=== PATIENT | male | born 1995 | race Caucasian/White ===

== ENCOUNTER 2017-11-21 21:17 | Emergency (ER) | payer BC ==
[2017-11-21] MEDS ORDERED: NS 0.9% 1000 ML* 1,000 ML IV ONE ×2 (21:43→22:06)
[2017-11-21] MEDS ORDERED: Albuterol/Ipratropium NEB.SOL* Albuterol 2.5 MG/Ipratropium 0.5 MG 3 ML INH ONE (22:06)
[2017-11-21 22:54] LABS: ABS Basophils 0 10^3/ul (0-0.2); ABS Eosinophils 0.1 10^3/ul (0-0.6); ABS Lymphocytes 1.8 10^3/ul (1.0-4.8); ABS Monocytes 0.5 10^3/ul (0-0.8); ABS Neutrophils 5.5 10^3/ul (1.5-7.7); ABS Nucleated RBC 0 10^3/ul; Eosinophil % 0.9 % (0-6); Hematocrit 41 % (42-52); Lymphocyte % 22.9 % (25-47); Mean Corpuscular HGB Conc 34 g/dl (31-36); Mean Corpuscular Hemoglobin 30 pg (27-31); Mean Corpuscular Volume 89 fL (80-94); Mean Platelet Volume 8.7 um3 (7.4-10.4); Nucleated Red Blood Cells % 0; Platelet Count 178 10^3/ul (150-450); Red Blood Count 4.61 10^6/ul (4.0-5.4); Red Cell Distribution Width 13 % (10.5-15); White Blood Count 7.9 10^3/ul (3.5-10.8)
[2017-11-21 23:10] LABS: EGFR Non-African American 79.5 (>60)
[2017-11-21] MEDS ORDERED: predniSONE TAB* 20 MG PO ONE (23:16)
--- NOTE | 2017-11-22 | ED ---
Wyatt Simon Jennifer, scribed for Zane Serrano MD on 11/21/17 at 2209 . Complex/Multi-Sys Presentation - HPI Summary HPI Summary: The patient is a 22 year old male who presents with SOB and weakness for the past several weeks. The patient reports he had a lung infection three weeks and received antibiotics. However, he has progressively worsened with wheezing and weakness now. He additionally complains of body aches, chills, tightness with breathing, productive cough, right neck and face swelling, and runny nose. Patient describes his cough is dark yellow with brown specks. He denies pain or swelling in the legs. - History Of Current Complaint Chief Complaint: EDShortnessOfBreath Time Seen by Provider: 11/21/17 21:41 Hx Obtained From: Patient Onset/Duration: Gradual Onset, Lasting Weeks - 3 weeks, Still Present, Worse Since - three weeks Timing: Constant Severity Currently: Mild Severity Initially: Mild Associated Signs And Symptoms: Positive: Other - wheezing, SOB, weakness, body aches, chills, productive cough, right neck and face swelling, runny nose. NEG: pain or swelling in the legs Related History: Recent Illness - Diagnosed with pneumonia three weeks ago - Allergies/Home Medications Allergies/Adverse Reactions: Allergies Allergy/AdvReac Type Severity Reaction Status Date / Time No Known Allergies Allergy Verified 10/25/14 09:59 PMH/Surg Hx/FS Hx/Imm Hx Endocrine/Hematology History: Denies: Hx Diabetes, Hx Thyroid Disease Cardiovascular History: Denies: Hx Hypertension Respiratory History: Denies: Hx Asthma, Hx Chronic Obstructive Pulmonary Disease (COPD) GI History: Denies: Hx Ulcer - Surgical History Surgery Procedure, Year, and Place: Tubes in ears as a child Infectious Disease History: No Infectious Disease History: Denies: Hx Clostridium Difficile, Hx Hepatitis, Hx Human Immunodeficiency Virus (HIV), Hx of Known/Suspected MRSA, Hx Shingles, Hx Tuberculosis, Hx Known/ Suspected VRE, Hx Known/Suspected VRSA, History Other Infectious Disease, Traveled Outside the [place] in Last 30 Days - Family History Known Family History: Negative: Hypertension, Diabetes - Social History Alcohol Use: None Hx Substance Use: No Substance Use Type: Reports: None Hx Tobacco Use: Yes Smoking Status (MU): Light Every Day Tobacco Smoker Type: Cigarettes Review of Systems Positive: Chills, Other - body aches Positive: Shortness Of Breath, Cough Positive: Other - right face and neck swelling Positive: Weakness All Other Systems Reviewed And Are Negative: Yes Physical Exam - Summary Physical Exam Summary: Appearance: Well appearing, no pain distress Skin: warm, dry, reflects adequate perfusion Head/face: normal Eyes: EOMI, HOA ENT: normal, no nasal discharge, clear throat, ears normal Neck: supple, non-tender Respiratory: Some rustling sounds in periphery, no wheezes, breath sounds present Cardiovascular: Tachycardic, regular rhythm, pulses symmetrical Abdomen: non-tender, soft Bowel Sounds: present Musculoskeletal: normal, strength/ROM intact Neuro: normal, sensory motor intact, A&Ox3 Triage Information Reviewed: Yes Vital Signs On Initial Exam: Initial Vitals Temp Pulse Resp BP Pulse Ox 97.8 F 119 16 164/101 99 11/21/17 21:30 11/21/17 21:30 11/21/17 21:30 11/21/17 21:30 11/21/17 21:30 Vital Signs Reviewed: Yes Diagnostics - Vital Signs Vital Signs Temp Pulse Resp BP Pulse Ox 11/21/17 21:30 97.8 F 119 16 164/101 99 - Laboratory Lab Results: Lab Results 11/21/17 11/21/17 11/21/17 Range/Units 22:46 22:46 22:46 WBC 7.9 (3.5-10.8) 10^3/ul RBC 4.61 (4.0-5.4) 10^6/ul Hgb 14.0 (14.0-18.0) g/dl Hct 41 L (42-52) % MCV 89 (80-94) fL MCH 30 (27-31) pg MCHC 34 (31-36) g/dl RDW 13 (10.5-15) % Plt Count 178 (150-450) 10^3/ul MPV 8.7 (7.4-10.4) um3 Neut % (Auto) 70.0 (38-83) % Lymph % (Auto) 22.9 L (25-47) % Latimer % (Auto) 5.7 (0-7) % Eos % (Auto) 0.9 (0-6) % Baso % (Auto) 0.5 (0-2) % Absolute Neuts (auto) 5.5 (1.5-7.7) 10^3/ul Absolute Lymphs (auto) 1.8 (1.0-4.8) 10^3/ul Absolute Monos (auto) 0.5 (0-0.8) 10^3/ul Absolute Eos (auto) 0.1 (0-0.6) 10^3/ul Absolute Basos (auto) 0 (0-0.2) 10^3/ul Absolute Nucleated RBC 0 10^3/ul Nucleated RBC % 0 D-Dimer, Quantitative (Less Than 230) ng/mL Sodium 137 L (139-145) mmol/L Potassium 3.9 (3.5-5.0) mmol/L Chloride 103 (101-111) mmol/L Carbon Dioxide 27 (22-32) mmol/L Anion Gap 7 (2-11) mmol/L BUN 16 (6-24) mg/dL Creatinine 1.16 (0.67-1.17) mg/dL Est GFR ( Amer) 102.2 (>60) Est GFR (Non-Af Amer) 79.5 (>60) BUN/Creatinine Ratio 13.8 (8-20) Glucose 114 H (70-100) mg/dL Lactic Acid 0.7 (0.5-2.0) mmol/L Calcium 9.6 (8.6-10.3) mg/dL 11/21/17 Range/Units 22:46 WBC (3.5-10.8) 10^3/ul RBC (4.0-5.4) 10^6/ul Hgb (14.0-18.0) g/dl Hct (42-52) % MCV (80-94) fL MCH (27-31) pg MCHC (31-36) g/dl RDW (10.5-15) % Plt Count (150-450) 10^3/ul MPV (7.4-10.4) um3 Neut % (Auto) (38-83) % Lymph % (Auto) (25-47) % Latimer % (Auto) (0-7) % Eos % (Auto) (0-6) % Baso % (Auto) (0-2) % Absolute Neuts (auto) (1.5-7.7) 10^3/ul Absolute Lymphs (auto) (1.0-4.8) 10^3/ul Absolute Monos (auto) (0-0.8) 10^3/ul Absolute Eos (auto) (0-0.6) 10^3/ul Absolute Basos (auto) (0-0.2) 10^3/ul Absolute Nucleated RBC 10^3/ul Nucleated RBC % D-Dimer, Quantitative < 200 (Less Than 230) ng/mL Sodium (139-145) mmol/L Potassium (3.5-5.0) mmol/L Chloride (101-111) mmol/L Carbon Dioxide (22-32) mmol/L Anion Gap (2-11) mmol/L BUN (6-24) mg/dL Creatinine (0.67-1.17) mg/dL Est GFR ( Amer) (>60) Est GFR (Non-Af Amer) (>60) BUN/Creatinine Ratio (8-20) Glucose (70-100) mg/dL Lactic Acid (0.5-2.0) mmol/L Calcium (8.6-10.3) mg/dL Result Diagrams: 11/21/17 22:46 11/21/17 22:46 Lab Statement: Any lab studies that have been ordered have been reviewed, and results considered in the medical decision making process. - Radiology CXR Xray Interpretation: No Acute Changes - Normal. Radiology Interpretation Completed By: ED Physician Re-Evaluation - Re-Evaluation First Eval Re-Evaluation Time: 23:14 Change: Improved Comment: The patient is doing much better after fluids and breathing treatment. Complex Multi-Symp Course/Dx Course Of Treatment: Patient with some coughing and sputum production along with intermittent wheezing. There is no definite wheezing heard on auscultation but some rustling breath sounds. Chest x-ray was negative. Laboratories were nonrevealing and the d-dimer was negative. He improved with breathing treatments and IV hydration. He was discharged in good condition on prednisone and albuterol. He will follow up with his primary care physician. - Diagnoses Differential Diagnoses/HQI/PQRI: Other - Pneumonia, pulmonary embolism, bronchitis Provider Diagnoses: Bronchitis, Dehydration Discharge - Sign-Out/Discharge Documenting (check all that apply): Discharge/Admit/Transfer - Discharge Plan Condition: Good Disposition: HOME Prescriptions: Albuterol HFA INHALER* [Ventolin HFA Inhaler*] 2 puff INH Q4H PRN #1 mdi PRN Reason: Shortness Of Breath predniSONE TAB* [Deltasone TAB*] 50 mg PO DAILY #4 tab Patient Education Materials: Dehydration (ED), Acute Bronchitis (ED) Referrals: Francisco Vázquez MD [Primary Care Provider] - Additional Instructions: Stay well-hydrated. Use inhaler as needed. Steroid might make he feels little anxious. Call your doctor first thing in the morning to follow-up. Return if worse, new symptoms or other concerns. - Billing Disposition and Condition Condition: STABLE Disposition: HOME The documentation as recorded by the Wyatt dillard Jennifer accurately reflects the service I personally performed and the decisions made by me, Zane Serrano MD.
[2017-11-22 00:18] VITALS: BP 121/65
--- NOTE | 2017-11-22 07:40 | RAD ---
HISTORY: Shortness of breath COMPARISONS: None VIEWS: 4: Frontal dual-energy and lateral views of the chest. FINDINGS: CARDIOMEDIASTINAL SILHOUETTE: The cardiomediastinal silhouette is normal. SHERLY: The sherly are normal. PLEURA: The costophrenic angles are sharp. No pleural abnormalities are noted. LUNG PARENCHYMA: The lungs are clear. ABDOMEN: The upper abdomen is clear. There is no subphrenic gas. BONES AND SOFT TISSUES: No bone or soft tissue abnormalities are noted. OTHER: None. IMPRESSION: NO ACTIVE CARDIOPULMONARY DISEASE.
== END 2017-11-22 00:19 | disposition home or self-care (01) ==
LOC: ED 21:17
DX: J40 Bronchitis, not specified as acute or chronic (principal); E86.0 Dehydration; R06.02 Shortness of breath; R53.1 Weakness; F17.210 Nicotine dependence, cigarettes, uncomplicated
CPT/HCPCS: 36415; 71046; 80048; 83605; 85025; 85379; 99284; A9270-GY; J7512

== ENCOUNTER 2017-11-24 15:40 | Emergency (ER) | payer BC ==
[2017-11-24] MEDS ORDERED: Albuterol/Ipratropium NEB.SOL* Albuterol 2.5 MG/Ipratropium 0.5 MG 3 ML INH ONE (17:03)
[2017-11-24 17:20] LABS: ABS Basophils 0 10^3/ul (0-0.2); ABS Eosinophils 0 10^3/ul (0-0.6); ABS Lymphocytes 0.5 10^3/ul (1.0-4.8); ABS Monocytes 0.1 10^3/ul (0-0.8); ABS Neutrophils 8.5 10^3/ul (1.5-7.7); ABS Nucleated RBC 0 10^3/ul; Eosinophil % 0.1 % (0-6); Hematocrit 43 % (42-52); Hemoglobin 14.4 g/dl (14.0-18.0); Lymphocyte % 5.6 % (25-47); Mean Corpuscular HGB Conc 34 g/dl (31-36); Mean Corpuscular Hemoglobin 31 pg (27-31); Mean Corpuscular Volume 90 fL (80-94); Mean Platelet Volume 8.6 um3 (7.4-10.4); Nucleated Red Blood Cells % 0; Platelet Count 174 10^3/ul (150-450); Red Blood Count 4.72 10^6/ul (4.0-5.4); Red Cell Distribution Width 13 % (10.5-15); White Blood Count 9.2 10^3/ul (3.5-10.8)
--- NOTE | 2017-11-24 17:34 | RAD ---
HISTORY: Cough, shortness of breath COMPARISONS: November 21, 2017 VIEWS: 4: Frontal dual-energy and lateral views of the chest. FINDINGS: CARDIOMEDIASTINAL SILHOUETTE: The cardiomediastinal silhouette is normal. SHERLY: The sherly are normal. PLEURA: The costophrenic angles are sharp. No pleural abnormalities are noted. LUNG PARENCHYMA: There is hyperinflation with flattening of the diaphragm and expansion of the retrosternal airspace. ABDOMEN: The upper abdomen is clear. There is no subphrenic gas. BONES AND SOFT TISSUES: No bone or soft tissue abnormalities are noted. OTHER: None. IMPRESSION: HYPERINFLATION WHICH CAN BE SEEN WITH REACTIVE AIRWAY DISEASE OR COPD. NO ACTIVE CARDIOPULMONARY DISEASE.
[2017-11-24 17:36] LABS: EGFR Non-African American 94.3 (>60)
[2017-11-24] MEDS ORDERED: Azithromycin TAB* 250 MG PO ONE (18:22)
[2017-11-24] MEDS ORDERED: predniSONE TAB* 20 MG PO ONE (18:22)
[2017-11-24 18:29] VITALS: BP 118/69
--- NOTE | 2017-11-24 18:46 | ED ---
Rodolfo Simon Stephanie, scribed for Darin Montoya on 11/24/17 at 1653 . Respiratory - HPI Summary HPI Summary: The pt is a 22 y/o M presenting to the ED with c/o cough that began on 11/21/17. Symptoms include wheezing and shallow breathing. The pt was seen in the ED for the same symptoms on Sunday and given prednisone and albuterol. He states his symptoms have gotten worse since his last ED visit. The pt states he took abx amoxicillin from his PCP: last dose on Nov 08 2017. - History of Current Complaint Chief Complaint: EDUpperRespComplaint Stated Complaint: SOB/FATIGUE Time Seen by Provider: 11/24/17 16:20 Hx Obtained From: Patient Onset/Duration: Gradual Onset, Lasting Days - 3, Still Present Timing: Constant Current Severity: Mild Pain Intensity: 0 Character: Wheezing Sputum Amount: Small Aggravating Factor(s): Nothing Alleviating Factor(s): Nothing Associated Signs and Symptoms: Wheezing - Allergy/Home Medications Allergies/Adverse Reactions: Allergies Allergy/AdvReac Type Severity Reaction Status Date / Time No Known Allergies Allergy Verified 11/24/17 15:45 PMH/Surg Hx/FS Hx/Imm Hx Endocrine/Hematology History: Denies: Hx Diabetes, Hx Thyroid Disease Cardiovascular History: Denies: Hx Hypertension Respiratory History: Reports: Other Respiratory Problems/Disorders - PNA Denies: Hx Asthma, Hx Chronic Obstructive Pulmonary Disease (COPD) GI History: Denies: Hx Ulcer Sensory History: Denies: Hx Legally Blind EENT History: Denies: Hx Deafness - Surgical History Surgery Procedure, Year, and Place: Tubes in ears as a child Infectious Disease History: No Infectious Disease History: Denies: Hx Clostridium Difficile, Hx Hepatitis, Hx Human Immunodeficiency Virus (HIV), Hx of Known/Suspected MRSA, Hx Shingles, Hx Tuberculosis, Hx Known/ Suspected VRE, Hx Known/Suspected VRSA, History Other Infectious Disease, Traveled Outside the [place] in Last 30 Days - Family History Known Family History: Negative: Hypertension, Diabetes - Social History Occupation: Student Lives: Dormitory/Roommates Alcohol Use: Occasionally Hx Substance Use: No Substance Use Type: Reports: None Hx Tobacco Use: Yes Smoking Status (MU): Former Smoker Type: Cigarettes Review of Systems Negative: Fever Positive: Cough, Other - wheezing, shallow breathing Negative: Slurred Speech All Other Systems Reviewed And Are Negative: Yes Physical Exam - Summary Physical Exam Summary: Appearance: Well appearing, no pain distress Skin: warm, dry, reflects adequate perfusion Head/face: normal Eyes: EOMI, HOA ENT: normal Neck: supple, non-tender Respiratory: bilateral wheezes, breath sounds present Cardiovascular: RRR, pulses symmetrical Abdomen: non-tender, soft Bowel: present Musculoskeletal: normal, strength/ROM intact Neuro: normal, sensory motor intact, A&Ox3 Triage Information Reviewed: Yes Vital Signs On Initial Exam: Initial Vitals Temp Pulse Resp BP Pulse Ox 98.2 F 96 18 132/79 99 11/24/17 15:45 11/24/17 15:45 11/24/17 15:45 11/24/17 15:45 11/24/17 15:45 Vital Signs Reviewed: Yes Diagnostics - Vital Signs Vital Signs Temp Pulse Resp BP Pulse Ox 11/24/17 16:25 18 11/24/17 16:21 93 120/74 98 11/24/17 15:45 98.2 F 96 18 132/79 99 - Laboratory Lab Results: Lab Results 11/24/17 11/24/17 11/24/17 Range/Units 17:10 17:10 17:10 WBC 9.2 (3.5-10.8) 10^3/ul RBC 4.72 (4.0-5.4) 10^6/ul Hgb 14.4 (14.0-18.0) g/dl Hct 43 (42-52) % MCV 90 (80-94) fL MCH 31 (27-31) pg MCHC 34 (31-36) g/dl RDW 13 (10.5-15) % Plt Count 174 (150-450) 10^3/ul MPV 8.6 (7.4-10.4) um3 Neut % (Auto) 93.1 H (38-83) % Lymph % (Auto) 5.6 L (25-47) % Rosebud % (Auto) 1.0 (0-7) % Eos % (Auto) 0.1 (0-6) % Baso % (Auto) 0.2 (0-2) % Absolute Neuts (auto) 8.5 H (1.5-7.7) 10^3/ul Absolute Lymphs (auto) 0.5 L (1.0-4.8) 10^3/ul Absolute Monos (auto) 0.1 (0-0.8) 10^3/ul Absolute Eos (auto) 0 (0-0.6) 10^3/ul Absolute Basos (auto) 0 (0-0.2) 10^3/ul Absolute Nucleated RBC 0 10^3/ul Nucleated RBC % 0 D-Dimer, Quantitative (Less Than 230) ng/mL Sodium 141 (139-145) mmol/L Potassium 4.7 (3.5-5.0) mmol/L Chloride 106 (101-111) mmol/L Carbon Dioxide 27 (22-32) mmol/L Anion Gap 8 (2-11) mmol/L BUN 10 (6-24) mg/dL Creatinine 1.00 (0.67-1.17) mg/dL Est GFR ( Amer) 121.3 (>60) Est GFR (Non-Af Amer) 94.3 (>60) BUN/Creatinine Ratio 10.0 (8-20) Glucose 112 H (70-100) mg/dL Lactic Acid 1.4 (0.5-2.0) mmol/L Calcium 9.8 (8.6-10.3) mg/dL Total Bilirubin 0.70 (0.2-1.0) mg/dL AST 16 (13-39) U/L ALT 15 (7-52) U/L Alkaline Phosphatase 43 (34-104) U/L Troponin I 0.00 (<0.04) ng/mL B-Natriuretic Peptide ( - 100) pg/mL Total Protein 7.2 (6.4-8.9) g/dL Albumin 5.0 (3.2-5.2) g/dL Globulin 2.2 (2-4) g/dL Albumin/Globulin Ratio 2.3 (1-3) 11/24/17 11/24/17 Range/Units 17:10 17:10 WBC (3.5-10.8) 10^3/ul RBC (4.0-5.4) 10^6/ul Hgb (14.0-18.0) g/dl Hct (42-52) % MCV (80-94) fL MCH (27-31) pg MCHC (31-36) g/dl RDW (10.5-15) % Plt Count (150-450) 10^3/ul MPV (7.4-10.4) um3 Neut % (Auto) (38-83) % Lymph % (Auto) (25-47) % Rosebud % (Auto) (0-7) % Eos % (Auto) (0-6) % Baso % (Auto) (0-2) % Absolute Neuts (auto) (1.5-7.7) 10^3/ul Absolute Lymphs (auto) (1.0-4.8) 10^3/ul Absolute Monos (auto) (0-0.8) 10^3/ul Absolute Eos (auto) (0-0.6) 10^3/ul Absolute Basos (auto) (0-0.2) 10^3/ul Absolute Nucleated RBC 10^3/ul Nucleated RBC % D-Dimer, Quantitative < 200 (Less Than 230) ng/mL Sodium (139-145) mmol/L Potassium (3.5-5.0) mmol/L Chloride (101-111) mmol/L Carbon Dioxide (22-32) mmol/L Anion Gap (2-11) mmol/L BUN (6-24) mg/dL Creatinine (0.67-1.17) mg/dL Est GFR ( Amer) (>60) Est GFR (Non-Af Amer) (>60) BUN/Creatinine Ratio (8-20) Glucose (70-100) mg/dL Lactic Acid (0.5-2.0) mmol/L Calcium (8.6-10.3) mg/dL Total Bilirubin (0.2-1.0) mg/dL AST (13-39) U/L ALT (7-52) U/L Alkaline Phosphatase (34-104) U/L Troponin I (<0.04) ng/mL B-Natriuretic Peptide 21 ( - 100) pg/mL Total Protein (6.4-8.9) g/dL Albumin (3.2-5.2) g/dL Globulin (2-4) g/dL Albumin/Globulin Ratio (1-3) Result Diagrams: 11/24/17 17:10 11/24/17 17:10 Lab Statement: Any lab studies that have been ordered have been reviewed, and results considered in the medical decision making process. - Radiology CXR Xray Interpretation: No Acute Changes Radiology Interpretation Completed By: Radiologist - HYPERINFLATION WHICH CAN BE SEEN WITH REACTIVE AIRWAY DISEASE OR COPD. NO ACTIVE CARDIOPULMONARY DISEASE. ED physician has reviewed this report. Re-Evaluation - Re-Evaluation First Eval Re-Evaluation Time: 18:19 Change: Improved - The pt is feeling better at this time after neb treatment. Disposition - Course Course Of Treatment: The pt is a 22 y/o M presenting to the ED with c/o cough that began on 11/21/17. Symptoms include wheezing and shallow breathing. CXR reveals no acute disease. The pt is discharged with zithromax for atypical bacteria. - Diagnoses Provider Diagnoses: Bronchospasm, Bronchitis Discharge - Sign-Out/Discharge Documenting (check all that apply): Discharge/Admit/Transfer - Discharge - Discharge Plan Condition: Stable Disposition: HOME Prescriptions: Albuterol HFA INHALER* [Ventolin HFA Inhaler*] 2 puff INH Q6H PRN #1 mdi MDD 5 PRN Reason: Sob/Wheezing Azithromycin TAB* [Zithromax TAB (Z-GOLD) 250 mg #6 tabs] 250 mg PO DAILY #4 tab Patient Education Materials: Acute Bronchitis (ED), Bronchospasm (ED) Referrals: Francisco Vázquez MD [Primary Care Provider] - 3 Days Additional Instructions: Return to the ED for new or worsening symptoms. - Billing Disposition and Condition Condition: STABLE Disposition: HOME The documentation as recorded by the Rodolfo dillard Stephanie accurately reflects the service I personally performed and the decisions made by Jan gutierrez Emmanuel.
== END 2017-11-24 18:34 | disposition home or self-care (01) ==
LOC: ED 15:40
DX: J20.9 Acute bronchitis, unspecified (principal); Z87.891 Personal history of nicotine dependence
CPT/HCPCS: 36415; 71046; 80053; 83605; 83880; 84484; 85025; 85379; 99283; A9270-GY; J7512

== ENCOUNTER 2017-11-28 17:14 | Emergency (ER) | payer BC ==
[2017-11-28] MEDS ORDERED: Tetan/Diph/Pertus SYR(Tdap)* 0.5 ML SYR(BOOSTRIX) use SYR IM ONE (17:53)
--- NOTE | 2017-11-28 20:11 | ED ---
Skin Complaint - HPI Summary HPI Summary: Patient presents with right hand pinky finger laceration while using an old box cutting knife today at work. He has a flap laceration which is not stopped bleeding unless he applies pressure. Denies numbness, tingling, weakness. Does not believe there are any foreign bodies present in the wound. He is not sure of his last tetanus shot like to boost this vaccine today. He cleaned his finger after the injury. - History of Current Complaint Chief Complaint: EDLacSutureRecheck Time Seen by Provider: 11/28/17 18:07 Stated Complaint: INJURY RT FINGER Hx Obtained From: Patient Pain Intensity: 4 - Allergy/Home Medications Allergies/Adverse Reactions: Allergies Allergy/AdvReac Type Severity Reaction Status Date / Time No Known Allergies Allergy Verified 11/28/17 17:41 PMH/Surg Hx/FS Hx/Imm Hx Previously Healthy: Yes Endocrine/Hematology History: Denies: Hx Anticoagulant Therapy, Hx Diabetes, Hx Thyroid Disease, Autoimmune Disease Cardiovascular History: Denies: Hx Hypertension Respiratory History: Reports: Other Respiratory Problems/Disorders - PNA Denies: Hx Asthma, Hx Chronic Obstructive Pulmonary Disease (COPD) GI History: Denies: Hx Ulcer Sensory History: Denies: Hx Legally Blind, Hx Deafness Opthamlomology History: Denies: Hx Legally Blind - Surgical History Surgery Procedure, Year, and Place: Tubes in ears as a child - Immunization History Immunizations Up to Date: No Infectious Disease History: No Infectious Disease History: Denies: Hx Clostridium Difficile, Hx Hepatitis, Hx Human Immunodeficiency Virus (HIV), Hx of Known/Suspected MRSA, Hx Shingles, Hx Tuberculosis, Hx Known/ Suspected VRE, Hx Known/Suspected VRSA, History Other Infectious Disease, Traveled Outside the [place] in Last 30 Days - Family History Known Family History: Positive: None Negative: Hypertension, Diabetes - Social History Occupation: Employed Full-time - [employer], Student - [employer] Lives: With Family Alcohol Use: Occasionally Hx Substance Use: No Substance Use Type: Reports: None Hx Tobacco Use: Yes - not currently Smoking Status (MU): Former Smoker Type: Cigarettes Review of Systems Positive: no symptoms reported Musculoskeletal: Negative Skin: Other - lac Neurological: Negative Psychological: Normal All Other Systems Reviewed And Are Negative: Yes Physical Exam Triage Information Reviewed: Yes Vital Signs On Initial Exam: Initial Vitals Temp Pulse Resp BP Pulse Ox 97.6 F 91 17 140/81 100 05/30/18 17:36 11/28/17 17:36 11/28/17 17:36 11/28/17 17:36 11/28/17 17:36 Vital Signs Reviewed: Yes Appearance: Positive: Well-Appearing, No Pain Distress, Well-Nourished Skin: Positive: Warm, Skin Color Reflects Adequate Perfusion - flap lac over Rt lateral distal 5th phalange - mild bleeding intermittently - better w/ pressure - no FB, vessels, nerve or tendon observed Head/Face: Positive: Normal Head/Face Inspection Eyes: Positive: EOMI ENT: Positive: Hearing grossly normal Respiratory/Lung Sounds: Positive: Breath Sounds Present Cardiovascular: Positive: Pulses are Symmetrical in both Upper and Lower Extremities Musculoskeletal: Positive: Normal, Strength/ROM Intact Neurological: Positive: Normal, Sensory/Motor Intact, Alert, Oriented to Person Place, Time, CN Intact II-III Psychiatric: Positive: Normal Procedures - Laceration/Wound Repair 1 Location: upper extremity - Rt pinky finger lac Description: Irregular - flap >1cm all the way around - through dermis Length, Depth and Shape: as above Betadine Prep?: Yes Irrigated w/ Saline (ccs): 250 Laceration/Wound Explored: clean Closure: Single Layer Suture Type: Other - ethilon 5-0 Number of Sutures: 6 Layer Closure?: No Sterile Dressing Applied?: Yes - triple anbx ointment + gauze + coban - hemodynamically stable Diagnostics - Vital Signs Vital Signs Temp Pulse Resp BP Pulse Ox 11/28/17 17:36 97.6 F 91 17 140/81 100 - Laboratory Lab Statement: Any lab studies that have been ordered have been reviewed, and results considered in the medical decision making process. Course/Dx - Diagnoses Provider Diagnoses: Laceration of right little finger Discharge - Sign-Out/Discharge Documenting (check all that apply): Discharge/Admit/Transfer - Discharge Plan Condition: Stable Disposition: HOME Patient Education Materials: Finger Laceration (ED) Forms: *Work Release Referrals: Francisco Vázquez MD [Primary Care Provider] - Additional Instructions: Keep Dressing clean and dry and in place for the next 48 hours. After that time he may remove dressing, gently wash wound with soap and water, rinse well and pat dry with clean cloth. Reapply triple antibiotic ointment and clean gauze dressing. Continue this daily until sutures are removed. Call your PCP to schedule wound recheck and suture removal in 10-14 days. * If you develop redness, swelling, streaking, purulent drainage, fevers or chills, seek medical attention sooner or return to the emergency department. - Billing Disposition and Condition Condition: STABLE Disposition: HOME
[2017-11-28 20:36] VITALS: BP 119/75
== END 2017-11-28 20:20 | disposition home or self-care (01) ==
LOC: ED 17:14
DX: S61.216A Laceration without foreign body of right little finger without damage to nail, initial encounter (principal); W26.0XXA Contact with knife, initial encounter; Y92.9 Unspecified place or not applicable; Z23 Encounter for immunization; Z87.891 Personal history of nicotine dependence
CPT/HCPCS: 12001; 90471; 90715; 99282

== ENCOUNTER 2017-12-09 19:10 | Emergency (ER) | payer BC ==
[2017-12-09] MEDS ORDERED: Albuterol/Ipratropium NEB.SOL* Albuterol 2.5 MG/Ipratropium 0.5 MG 3 ML INH ONE (20:14)
[2017-12-09] MEDS ORDERED: methylPREDNISolone 125 MG* 2 ML VIAL IV ONE (20:15)
--- NOTE | 2017-12-09 20:24 | ED ---
Respiratory - HPI Summary HPI Summary: 22-year-old male presents with shortness of breath for the past 2 months. He states that is made worse when he smokes. He states that he was on 2 course of antibiotics with zpack last stopped on Sunday. He states when he is on antibiotics that cough and wheezing improve. SOB is worst a tnight. He has not taking anything currently. He has not been using an inhaler. Does not have a history of asthma. Has never had a pulmonary function test. he denies any Abdominal pain. he admits to occasional sore throat. Admits to postnasal drip. No nausea no vomiting. - History of Current Complaint Chief Complaint: EDUpperRespComplaint Stated Complaint: SOB, COUGH Time Seen by Provider: 12/09/17 20:03 Pain Intensity: 0 - Allergy/Home Medications Allergies/Adverse Reactions: Allergies Allergy/AdvReac Type Severity Reaction Status Date / Time No Known Allergies Allergy Verified 12/09/17 20:23 PMH/Surg Hx/FS Hx/Imm Hx Endocrine/Hematology History: Denies: Hx Anticoagulant Therapy, Hx Diabetes, Hx Thyroid Disease Cardiovascular History: Denies: Hx Hypertension Respiratory History: Reports: Other Respiratory Problems/Disorders - PNA Denies: Hx Asthma, Hx Chronic Obstructive Pulmonary Disease (COPD) GI History: Denies: Hx Ulcer Sensory History: Denies: Hx Legally Blind Opthamlomology History: Denies: Hx Legally Blind - Surgical History Surgery Procedure, Year, and Place: Tubes in ears as a child Infectious Disease History: No Infectious Disease History: Denies: Hx Clostridium Difficile, Hx Hepatitis, Hx Human Immunodeficiency Virus (HIV), Hx of Known/Suspected MRSA, Hx Shingles, Hx Tuberculosis, Hx Known/ Suspected VRE, Hx Known/Suspected VRSA, History Other Infectious Disease, Traveled Outside the [place] in Last 30 Days - Family History Known Family History: Positive: None Negative: Hypertension, Diabetes - Social History Alcohol Use: Occasionally Hx Substance Use: No Substance Use Type: Reports: None Hx Tobacco Use: Yes - not currently Smoking Status (MU): Former Smoker Type: Cigarettes Review of Systems Negative: Fever Positive: Chest Pain Positive: Shortness Of Breath, Cough Negative: Abdominal Pain All Other Systems Reviewed And Are Negative: Yes Physical Exam Triage Information Reviewed: Yes Vital Signs On Initial Exam: Initial Vitals Temp Pulse Resp BP Pulse Ox 98.1 F 86 18 138/81 100 12/09/17 19:21 12/09/17 19:21 12/09/17 19:21 12/09/17 19:21 12/09/17 19:21 Vital Signs Reviewed: Yes Appearance: Positive: Well-Appearing Skin: Positive: Warm, Dry Head/Face: Positive: Normal Head/Face Inspection Eyes: Positive: Normal, EOMI, HOA, Conjunctiva Clear ENT: Positive: Normal ENT inspection, Pharynx normal, TMs normal Neck: Positive: Supple, Nontender, No Lymphadenopathy Respiratory/Lung Sounds: Positive: Breath Sounds Present, Wheezes Cardiovascular: Positive: Normal, RRR Abdomen Description: Positive: Nontender, Soft Bowel Sounds: Positive: Present Musculoskeletal: Positive: Normal Neurological: Positive: Normal Psychiatric: Positive: Normal Diagnostics - Vital Signs Vital Signs Temp Pulse Resp BP Pulse Ox 12/09/17 19:21 98.1 F 86 18 138/81 100 - Laboratory Result Diagrams: 12/09/17 21:07 12/09/17 21:07 Lab Statement: Any lab studies that have been ordered have been reviewed, and results considered in the medical decision making process. Re-Evaluation - Re-Evaluation First Eval Re-Evaluation Time: 21:30 Change: Improved Comment: lungs improved after inhaler Disposition - Course Course Of Treatment: 22-year-old male presents with shortness of breath for the past 2 months. He states that is made worse when he smokes. He states that he was on 2 course of antibiotics with zpack last stopped on Sunday. He states when he is on antibiotics that cough and wheezing improve. SOB is worst a tnight. He has not taking anything currently. He has not been using an inhaler. Does not have a history of asthma. Has never had a pulmonary function test. he denies any Abdominal pain. he admits to occasional sore throat. Admits to postnasal drip. No nausea no vomiting. On exam has wheezing present in left lungs. Labs within normal limits. D-dimer normal. CRP less than 1. White blood count normal. Chest x-ray normal. Could be bronchitis vs asthma. Told to follow up with primary as may benefit from PFTs. Will prescribe prednisone and flonase for sx. Patient understands and agrees with plan. - Differential Dx - Cardiopulmonary Differential Diagnoses - Cardiopulmonary: Asthma, Bronchitis, Lower Resp Infection - Diagnoses Provider Diagnoses: Shortness of breath Discharge - Sign-Out/Discharge Documenting (check all that apply): Discharge/Admit/Transfer - Discharge Plan Condition: Good Disposition: HOME Prescriptions: Fluticasone NASAL SPRAY 50MCG* [Flonase NASAL SPRAY 50MCG*] 2 spray BOTH NARES DAILY #1 btl guaiFENesin [Guaifenesin] 400 mg PO BID #20 tablet predniSONE TAB* [Deltasone TAB*] 50 mg PO DAILY #5 tab Patient Education Materials: Shortness of Breath (ED) Referrals: Francisco Vázquez MD [Primary Care Provider] - Additional Instructions: Use inhaler up to two puffs every 4 hours for cough and wheezing Take steroid once a day for 5 days Take guaifenesin twice a day Take flonase two spray each nostril daily Take Tylenol or ibuprofen for pain every 6 hours Follow up with primary within 5 days Return to ED if develop any new or worsening symptoms - Billing Disposition and Condition Condition: GOOD Disposition: Home
--- NOTE | 2017-12-09 20:39 | RAD ---
INDICATION: Cough in a smoker COMPARISON: Chest x-ray dated November 24, 2017 TECHNIQUE: PA and lateral views of the chest were obtained. FINDINGS: The heart and mediastinum are normal in size and contour. The lungs are grossly clear. There is no evidence of large pleural effusion. Visualized bones are normal for the patient's age. There is no radiographic evidence of free air beneath the diaphragm IMPRESSION: No radiographic evidence of acute cardiopulmonary disease.
[2017-12-09 21:18] LABS: ABS Basophils 0.2 10^3/ul (0-0.2); ABS Eosinophils 0.1 10^3/ul (0-0.6); ABS Lymphocytes 1.9 10^3/ul (1.0-4.8); ABS Monocytes 0.4 10^3/ul (0-0.8); ABS Neutrophils 4.6 10^3/ul (1.5-7.7); ABS Nucleated RBC 0 10^3/ul; Eosinophil % 1.6 % (0-6); Hematocrit 45 % (42-52); Hemoglobin 15.3 g/dl (14.0-18.0); Mean Corpuscular HGB Conc 34 g/dl (31-36); Mean Corpuscular Hemoglobin 31 pg (27-31); Mean Corpuscular Volume 90 fL (80-94); Mean Platelet Volume 8.7 um3 (7.4-10.4); Nucleated Red Blood Cells % 0; Platelet Count 162 10^3/ul (150-450); Red Blood Count 4.99 10^6/ul (4.0-5.4); Red Cell Distribution Width 13 % (10.5-15); White Blood Count 7.2 10^3/ul (3.5-10.8)
[2017-12-09 21:34] LABS: EGFR Non-African American 77.9 (>60)
[2017-12-09 22:17] VITALS: BP 126/68
== END 2017-12-09 22:20 | disposition home or self-care (01) ==
LOC: ED 19:10
DX: R06.02 Shortness of breath (principal); R05 Cough; Z87.891 Personal history of nicotine dependence; R07.9 Chest pain, unspecified
CPT/HCPCS: 36415; 71046; 80053; 83605; 83880; 85025; 85379; 86140; 96374; 99283; A9270-GY; J2930

== ENCOUNTER 2017-12-14 15:48 | Emergency (ER) | payer BC ==
[2017-12-14 16:26] VITALS: BP 110/58
[2017-12-14] MEDS ORDERED: Ibuprofen TAB* 600 MG PO ONE (17:31)
--- NOTE | 2017-12-14 19:24 | UC ---
Efraín Simon Jade, scribed for Devin Saenz MD on 12/14/17 at 1721 . Headache HPI - HPI Summary HPI Summary: Pt is a 22 y/o male who presents to [facility] [place] c/o headache. Pt has had respiratory issues for 2 months, including wheezing and not being able to get a full breath. He was put on Methylprednisolone 2 days ago for his issues, and has had constant frontal headaches since he started the medication. He states the Methylprednisolone improved his breathing, but the Albuterol and Flovent inhalers do not. His constant illness for the past few months is currently causing him anxiety. He also c/o right ear pain, some diarrhea, intermittent back and upper abdominal pain, clear mucus, and right neck and throat swelling. Pt denies a runny nose. Pt denies taking any Ibuprofen for the headache, or PSHx abdominal surgery. Pt had a normal CXR 2 weeks ago. He was on antibiotics 3 months ago for a chest infection. No PMHx asthma or allergies. - History Of Current Complaint Chief Complaint: UCGeneralIllness Stated Complaint: HEADACHE,POSS ALLERGIC REACTION Time Seen by Provider: 12/14/17 16:54 Hx Obtained From: Patient Onset/Duration: Gradual Onset, Lasting Weeks - 3 months Onset Of Symptoms: Still Present Currently Pain Is: Moderate Pain Intensity: 6 Pain Scale Used: 0-10 Numeric Timing: Constant - Headache, Intermittent, Lasting: - Sore throat Location of Headache: Frontal - Allergies/Home Medications Allergies/Adverse Reactions: Allergies Allergy/AdvReac Type Severity Reaction Status Date / Time No Known Allergies Allergy Verified 12/14/17 16:26 Home Medications: Home Medications methylPREDNISolone TAB* [Medrol TAB*] 12/14/17 [History] PMH/Surg Hx/FS Hx/Imm Hx Respiratory History: Bronchitis, Pneumonia, Other - NEGATIVE: asthma Other Respiratory History: . Psychological History: Anxiety Other History Of: Negative For: Anticoagulant Therapy - Surgical History Surgical History: Yes Surgery Procedure, Year, and Place: Tubes in ears as a child - Family History Known Family History: Negative: Hypertension, Diabetes - Social History Alcohol Use: Occasionally Substance Use Type: Marijuana Substance Use Comment - Amount & Last Used: occassionally Smoking Status (MU): Former Smoker Type: Cigarettes - Immunization History Most Recent Tetanus Shot: UTD Hx Tetanus, Diphtheria Vaccination: Yes - 2014 Vaccination Up to Date: Yes Review of Systems ENT: Sore Throat - Right throat pain and swelling, Ear Ache - Right, Nasal Discharge - Some clear mucus, Other - NEGATIVE: runny nose Respiratory: Shortness Of Breath, Other - Wheezing Gastrointestinal: Abdominal Pain - Upper - intermittent, Diarrhea Musculoskeletal: Other: - Back pain - mild, intermittent Neurological: Headache - Frontal, constant Psychological: Anxious All Other Systems Reviewed And Are Negative: Yes Physical Exam - Summary Physical Exam Summary: General: well-appearing, no pain distress Skin: warm, color reflects adequate perfusion, dry Head: normal Eyes: EOMI, HOA ENT: normal Neck: supple, nontender Respiratory: CTA, breath sounds present Cardiovascular: RRR Abdomen: soft, nontender Bowel: present Musculoskeletal: normal, strength/ROM intact Neurological: sensory/motor intact, A&O x3 Psychological: affect/mood appropriate Triage Information Reviewed: Yes Vital Signs: Initial Vital Signs Temp 98.1 F 12/14/17 16:19 Pulse 72 12/14/17 16:19 Resp 16 12/14/17 16:19 BP 110/58 12/14/17 16:19 Pulse Ox 99 12/14/17 16:19 Vital Signs Reviewed: Yes Headache Course/Dx - Course Course Of Treatment: BROWN ONSET GRADUAL AFTER STARTING MEDROL DOSE GOLD. NO FEVER. BROWN FRONTAL. HAD BEEN ON PREDNISONE WHICH HELPED WITH DYSPNEA. HE IS WILLING TO TRY RESTARTING THE PREDNISONE. WILL TRY IBUPROFEN/ACETAMINOPHEN FOR THE BROWN. WILL GET RE EVAL IF WORSE. - Differential Dx/Diagnosis Provider Diagnoses: HEADACHE. DYSPNEA Discharge - Sign-Out/Discharge Documenting (check all that apply): Discharge/Admit/Transfer - Discharge - Discharge Plan Condition: Stable Disposition: HOME Prescriptions: predniSONE TAB* [Deltasone 20 MG TAB*] 40 mg PO DAILY #10 tab Patient Education Materials: Acute Headache (ED), Shortness of Breath (ED) Referrals: Francisco Vázquez MD [Primary Care Provider] - Additional Instructions: FOLLOW UP WITH YOUR DOCTOR. TAKE IBUPROFEN AND/OR ACETAMINOPHEN DIRECTED NEEDED FOR YOUR HEADACHE. GET RECHECKED FOR ANY WORSENING OF YOUR CONDITION; WORSE OR PERSISTENT HEADACHE , PAIN, FEVER, DIFFICULTY BREATHING OR QUESTIONS OR CONCERNS. - Billing Disposition and Condition Condition: STABLE Disposition: Home The documentation as recorded by the Efraín dillard Jade accurately reflects the service I personally performed and the decisions made by , Devin Saenz MD.
== END 2017-12-14 18:07 | disposition home or self-care (01) ==
LOC: UCEAST 15:48
DX: R51 Headache (principal); R06.00 Dyspnea, unspecified; R07.0 Pain in throat; J34.89 Other specified disorders of nose and nasal sinuses; R10.10 Upper abdominal pain, unspecified; M54.9 Dorsalgia, unspecified; F41.9 Anxiety disorder, unspecified; Z87.891 Personal history of nicotine dependence
CPT/HCPCS: 99212; A9270-GY; G0463

== ENCOUNTER 2017-12-22 18:41 | Emergency (ER) | payer BC ==
--- NOTE | 2017-12-22 19:50 | ED ---
Headache - HPI Summary HPI Summary: 22-year-old male presents with right ear pain and right-sided neck pain for the past day. He has history of headaches for the past month and half. He states his headache today got suddenly worse two hours ago. He states that 6 out of 10. He did though states that it wasn't a thunderclap headache. He states that his took ibuprofen and it feels better. He states his headache is not concerning to him. He states his neck and ear hurts more. He denies any change in vision. No blurry vision. Discussed neck pain is an ache. He states it feels like it is sore. No fevers. No neck stiffness. No injury. He states that it feels like his mouth is foaming. He denies any tearing pain in his neck. No family history of aneurysms or dissection. He has no medical conditions. - History Of Current Complaint Chief Complaint: EDGeneral Stated Complaint: NECK SWELLING,EAR & HEAD PAIN Time Seen by Provider: 12/22/17 19:18 - Allergies/Home Medications Allergies/Adverse Reactions: Allergies Allergy/AdvReac Type Severity Reaction Status Date / Time No Known Allergies Allergy Verified 12/14/17 16:26 PMH/Surg Hx/FS Hx/Imm Hx Endocrine/Hematology History: Denies: Hx Anticoagulant Therapy, Hx Diabetes, Hx Thyroid Disease Cardiovascular History: Denies: Hx Hypertension Respiratory History: Reports: Other Respiratory Problems/Disorders - PNA Denies: Hx Asthma, Hx Chronic Obstructive Pulmonary Disease (COPD) GI History: Denies: Hx Ulcer Sensory History: Denies: Hx Legally Blind Opthamlomology History: Denies: Hx Legally Blind - Surgical History Surgery Procedure, Year, and Place: Tubes in ears as a child Infectious Disease History: No Infectious Disease History: Denies: Hx Clostridium Difficile, Hx Hepatitis, Hx Human Immunodeficiency Virus (HIV), Hx of Known/Suspected MRSA, Hx Shingles, Hx Tuberculosis, Hx Known/ Suspected VRE, Hx Known/Suspected VRSA, History Other Infectious Disease, Traveled Outside the [place] in Last 30 Days - Family History Known Family History: Positive: None Negative: Hypertension, Diabetes - Social History Alcohol Use: Weekly Hx Substance Use: No Substance Use Type: Reports: Marijuana Substance Use Comment - Amount & Last Used: occassionally Hx Tobacco Use: Yes - not currently Smoking Status (MU): Former Smoker Type: Cigarettes Review of Systems Negative: Fever Positive: Ear Ache, Other - neck pain right sided Negative: Chest Pain Negative: Shortness Of Breath Positive: Headache All Other Systems Reviewed And Are Negative: Yes Physical Exam Triage Information Reviewed: Yes Vital Signs On Initial Exam: Initial Vitals Temp Pulse Resp BP Pulse Ox 98.3 F 80 16 145/81 99 12/22/17 19:00 12/22/17 19:00 12/22/17 19:00 12/22/17 19:00 12/22/17 19:00 Vital Signs Reviewed: Yes Appearance: Positive: Well-Appearing Skin: Positive: Warm, Dry Head/Face: Positive: Normal Head/Face Inspection Eyes: Positive: Normal, EOMI, HOA, Conjunctiva Clear ENT: Positive: Pharynx normal, TMs normal - fluid behind right tm Neck: Positive: Supple, No Lymphadenopathy, Other: - tenderness over right carotid, no bruit Respiratory/Lung Sounds: Positive: Clear to Auscultation, Breath Sounds Present Cardiovascular: Positive: Normal, RRR Musculoskeletal: Positive: Normal Neurological: Positive: Sensory/Motor Intact, Alert, Oriented to Person Place, Time, CN Intact II-III Psychiatric: Positive: Normal Diagnostics - Vital Signs Vital Signs Temp Pulse Resp BP Pulse Ox 12/22/17 19:00 98.3 F 80 16 145/81 99 - Laboratory Result Diagrams: 12/22/17 19:46 Lab Statement: Any lab studies that have been ordered have been reviewed, and results considered in the medical decision making process. Headache Course/Dx - Course Course Of Treatment: 22-year-old male presents with right ear pain and right- sided neck pain for the past day. He has history of headaches for the past month and half. He states his headache today got suddenly worse two hours ago. He states that 6 out of 10. He did though states that it wasn't a thunderclap headache. He states that his took ibuprofen and it feels better. He states his headache is not concerning to him. He states his neck and ear hurts more. He denies any change in vision. No blurry vision. Discussed neck pain is an ache. He states it feels like it is sore. No fevers. No neck stiffness. No injury. He states that it feels like his mouth is foaming. He denies any tearing pain in his neck. No family history of aneurysms or dissection. He has no medical conditions. On exam normal neuro exam. Right TM has fluid behind. No lymphadenopathy on exam. no carotid bruist. discussed with patient that to fully evaluate neck should do a CT. mulitple IV times attempts so suggesting getting IV with u/s and patient declined. Went over symptoms again and patient no longer has headache and headache is not concerning to him. Discuss does not have any risk factors for dissection or aneurysm so think unlikely. Think symptoms may be due to eusterian tube dysfunction causing pain. Told to chew gum and take Flonase. Told follow up with ENT. Told to develop any worsening symptoms return to ED. Patient understands agrees with plan. - Diagnoses Differential Diagnosis/HQI/PQRI: Migraine, Sinus Headache, Subarachnoid Hemorrhage, Other - ear infection, dissection Provider Diagnoses: Headache, Right ear pain, Fluid level behind tympanic membrane of right ear, Neck pain Discharge - Sign-Out/Discharge Documenting (check all that apply): Discharge/Admit/Transfer - Discharge Plan Condition: Good Disposition: HOME Referrals: Francisco Vázquez MD [Primary Care Provider] - Calixto Trevino MD [Medical Doctor] - Additional Instructions: chew gum Take flonase twice a day Follow up with ENT Return to ED if develop any new or worsening symptoms - Billing Disposition and Condition Condition: GOOD Disposition: Home
[2017-12-22 20:24] LABS: EGFR Non-African American 81.9 (>60)
[2017-12-22] MEDS ORDERED: Iohexol 350* (CONTRAST) 500 ML MDV IV ONE (20:32)
[2017-12-22 21:51] VITALS: BP 135/82
== END 2017-12-22 21:49 | disposition home or self-care (01) ==
LOC: ED 18:41
DX: H92.01 Otalgia, right ear (principal); R51 Headache; M54.2 Cervicalgia; H92.11 Otorrhea, right ear; Z87.891 Personal history of nicotine dependence
CPT/HCPCS: 36415; 80053; 99282

== ENCOUNTER → 2017-12-23 15:46 | Emergency (ER) | payer BC ==
[~2017-12-23 15:46] MED LIST: Iohexol 300* (CONTRAST) 10 ML SDV IV ONE
[2017-12-23 17:50] LABS: ABS Basophils 0 10^3/ul (0-0.2); ABS Eosinophils 0.1 10^3/ul (0-0.6); ABS Lymphocytes 1.6 10^3/ul (1.0-4.8); ABS Monocytes 0.5 10^3/ul (0-0.8); ABS Neutrophils 5.7 10^3/ul (1.5-7.7); ABS Nucleated RBC 0 10^3/ul; Eosinophil % 1.2 % (0-6); Hematocrit 44 % (42-52); Hemoglobin 15.4 g/dl (14.0-18.0); Lymphocyte % 19.9 % (25-47); Mean Corpuscular HGB Conc 35 g/dl (31-36); Mean Corpuscular Hemoglobin 31 pg (27-31); Mean Corpuscular Volume 90 fL (80-94); Mean Platelet Volume 8.7 um3 (7.4-10.4); Nucleated Red Blood Cells % 0.1; Platelet Count 168 10^3/ul (150-450); Red Blood Count 4.91 10^6/ul (4.00-5.40); Red Cell Distribution Width 13 % (10.5-15); White Blood Count 7.9 10^3/ul (3.5-10.8)
[2017-12-23 18:06] LABS: EGFR Non-African American 90.2 (>60)
--- NOTE | 2017-12-23 18:36 | RAD ---
INDICATION: 19-year-old with wheezing. ED request for CT of chest and CT of the neck COMPARISON: There is no current chest x-ray. A prior Chest x-ray December 09, 2017 is reviewed TECHNIQUE: Axial source images were obtained from the thoracic inlet to the hemidiaphragms. Coronal and sagittal reconstructed images were acquired. 80 mL of Omnipaque 300 was utilized The visualized neck to include the thyroid appear normal. Chest wall: There are no acute abnormalities of the bony thorax or chest wall. There is no supraclavicular, infraclavicular, or axillary lymphadenopathy. Lungs : There are no pulmonary parenchymal masses or infiltrates. The pulmonary interstitium appears normal. There are no endobronchial lesions. Cardiomediastinal structures: The heart is normal in size. There is no pericardial effusion. There is no evidence of aortic aneurysm or dissection. The pulmonary vessels appear normal. There is no mediastinal or hilar adenopathy. The esophagus appears normal. Pleura : There are no pleural-based masses or effusions. Other: There are no acute or significant CT findings of the visualized upper abdomen. IMPRESSION: NORMAL CT CHEST
--- NOTE | 2017-12-23 18:38 | RAD ---
INDICATION: 19-year-old with wheezing. ED request for CT of the neck and chest COMPARISON: CT chest same date TECHNIQUE: Noncontrast axial source images of the neck were obtained. There is a small amount of residual contrast from the earlier CT of the chest. Coronal and sagittal reconstructed images were acquired. FINDINGS: Brain and skull base: There are no CT abnormalities of the visualized brain or skull base. The mastoid air cells are well aerated. Salivary glands: The major salivary glands appear normal. Paranasal sinuses: The paranasal sinuses are clear. Nasopharynx: The nasopharynx and nasal cavity appear normal. Oropharynx: The oral, and oropharynx appear normal. Larynx: There are no laryngeal abnormalities. Thyroid: The thyroid appears normal. Lymph nodes: There is no lymphadenopathy by size criteria. Trachea/esophagus: There are no abnormalities of the trachea or visualized esophagus. The visualized lung apices are clear.. Vessels:The vessels appear normal. Bones and soft tissues:The remaining soft tissue elements of the neck are normal. There are no acute bony findings. Other: None IMPRESSION: NORMAL CT OF THE NECK
[2017-12-23 20:40] VITALS: BP 130/68
--- NOTE | 2017-12-23 20:53 | ED ---
Kathleen Simon Elizabeth, scribed for Emilie Butt MD on 12/23/17 at 1725 . Headache - HPI Summary HPI Summary: This patient is a 22 year old M presenting to [facility] with a chief complaint of pounding headache since 2 days ago. The patient reports that he was seen at [facility] yesterday for the same symptoms, but the patient notes that his symptoms have worsened since then. The patient rates the pain 7/10 in severity. Symptoms aggravated by nothing. Symptoms alleviated by nothing. Patient reports difficulty swallowing, ear pain in right ear, loss of hearing in right ear productive cough with brown sputum, and swelling in his neck. The patient notes that he has been spitting a lot of white stuff for a month and a half. The patient reports that he sometimes feels hungry for air. The patient notes that he has seen a genetic technologist and was given an inhaler to help with the wheezing but he has not been diagnosed with anything. The patient notes that he gets a pounding headache when he exercises. Patient denies chest pain when he coughs. Patient reports hx of respiratory infections, pt admits to [facility] been at least a 1PPD smoker for the last 3 years and recently quit. - History Of Current Complaint Chief Complaint: EDHeadache Stated Complaint: NECK PAIN,HEARING LOSS,HEADACHE Time Seen by Provider: 12/23/17 16:37 Hx Obtained From: Patient Onset/Duration: Gradual Onset, Started days ago - 2 days ago, Still Present Initially Headache Was: Mild Currently Pain Is: Mild Timing: Constant, Days - 2 days Character: Throbbing Aggravating Factor: Nothing Allevating Factors: Nothing Associated Signs And Symptoms: Other (Noted In Comments) - neck swelling, difficulty swallowing, ear pain in right ear, hearing loss in right ear, productive cough - Allergies/Home Medications Allergies/Adverse Reactions: Allergies Allergy/AdvReac Type Severity Reaction Status Date / Time No Known Allergies Allergy Verified 12/23/17 15:53 Home Medications: Home Medications Fluticasone HFA 110 mcg(NF) [Flovent HFA 110 mcg(NF)] 1 puff INH BID 12/23/17 [ History Confirmed 12/23/17] PMH/Surg Hx/FS Hx/Imm Hx Endocrine/Hematology History: Denies: Hx Anticoagulant Therapy, Hx Diabetes, Hx Thyroid Disease Cardiovascular History: Denies: Hx Hypertension Respiratory History: Reports: Other Respiratory Problems/Disorders - PNA, HEAVY SMOKER FOR LAST 3 YEARS Denies: Hx Asthma, Hx Chronic Obstructive Pulmonary Disease (COPD) GI History: Denies: Hx Ulcer Sensory History: Denies: Hx Legally Blind Opthamlomology History: Denies: Hx Legally Blind - Surgical History Surgery Procedure, Year, and Place: Tubes in ears as a child Infectious Disease History: No Infectious Disease History: Denies: Hx Clostridium Difficile, Hx Hepatitis, Hx Human Immunodeficiency Virus (HIV), Hx of Known/Suspected MRSA, Hx Shingles, Hx Tuberculosis, Hx Known/ Suspected VRE, Hx Known/Suspected VRSA, History Other Infectious Disease, Traveled Outside the [place] in Last 30 Days - Family History Known Family History: Positive: None Negative: Hypertension, Diabetes - Social History Alcohol Use: Weekly Hx Substance Use: No Substance Use Type: Reports: Marijuana Substance Use Comment - Amount & Last Used: occassionally Hx Tobacco Use: Yes - not currently Smoking Status (MU): Former Smoker Type: Cigarettes Review of Systems Negative: Fever Positive: Sore Throat - throat swelling, difficulty swallowing, Ear Ache - right ear, some hearing loss Positive: Shortness Of Breath, Cough - productive cough Negative: Vomiting Positive: Headache All Other Systems Reviewed And Are Negative: Yes Physical Exam - Summary Physical Exam Summary: Appearance: Well-appearing, Well-nourished Skin: Warm Eyes: Normal ENT: Normal, TMs clear Neck: Supple, right posterior auricular lymph node tenderness, mild anterior cervical LN swelling and tenderness Respiratory: Expiratory wheezing Cardiovascular: Regular rate, regular rhythm. Normal S1, S2. Abdomen: Soft, nontender Musculoskeletal: Normal, Strength/ROM Intact Neurological: Normal, A&Ox3 Psychiatric: Normal General: No acute distress Triage Information Reviewed: Yes Vital Signs On Initial Exam: Initial Vitals Temp Pulse Resp BP Pulse Ox 98.6 F 98 16 124/70 97 12/23/17 15:50 12/23/17 15:50 12/23/17 15:50 12/23/17 15:50 12/23/17 15:50 Vital Signs Reviewed: Yes Diagnostics - Vital Signs Vital Signs Temp Pulse Resp BP Pulse Ox 12/23/17 15:50 98.6 F 98 16 124/70 97 - Laboratory Lab Results: Lab Results 06/24/18 06/24/18 Range/Units 17:40 17:40 WBC 7.9 (3.5-10.8) 10^3/ul RBC 4.91 (4.00-5.40) 10^6/ul Hgb 15.4 (14.0-18.0) g/dl Hct 44 (42-52) % MCV 90 (80-94) fL MCH 31 (27-31) pg MCHC 35 (31-36) g/dl RDW 13 (10.5-15) % Plt Count 168 (150-450) 10^3/ul MPV 8.7 (7.4-10.4) um3 Neut % (Auto) 72.0 (38-83) % Lymph % (Auto) 19.9 L (25-47) % Summit % (Auto) 6.4 (0-7) % Eos % (Auto) 1.2 (0-6) % Baso % (Auto) 0.5 (0-2) % Absolute Neuts (auto) 5.7 (1.5-7.7) 10^3/ul Absolute Lymphs (auto) 1.6 (1.0-4.8) 10^3/ul Absolute Monos (auto) 0.5 (0-0.8) 10^3/ul Absolute Eos (auto) 0.1 (0-0.6) 10^3/ul Absolute Basos (auto) 0 (0-0.2) 10^3/ul Absolute Nucleated RBC 0 10^3/ul Nucleated RBC % 0.1 Sodium 141 (135-145) mmol/L Potassium 4.1 (3.5-5.0) mmol/L Chloride 103 (101-111) mmol/L Carbon Dioxide 29 (22-32) mmol/L Anion Gap 9 (2-11) mmol/L BUN 15 (6-24) mg/dL Creatinine 1.04 (0.67-1.17) mg/dL Est GFR ( Amer) 109.1 (>60) Est GFR (Non-Af Amer) 90.2 (>60) BUN/Creatinine Ratio 14.4 (8-20) Glucose 89 (70-100) mg/dL Calcium 10.1 (8.6-10.3) mg/dL Total Bilirubin 0.70 (0.2-1.0) mg/dL AST 19 (13-39) U/L ALT 24 (7-52) U/L Alkaline Phosphatase 48 (34-104) U/L Total Protein 7.1 (6.4-8.9) g/dL Albumin 4.8 (3.2-5.2) g/dL Globulin 2.3 (2-4) g/dL Albumin/Globulin Ratio 2.1 (1-3) Monoscreen Negative (Negative) Result Diagrams: 12/23/17 17:40 12/23/17 17:40 Lab Statement: Any lab studies that have been ordered have been reviewed, and results considered in the medical decision making process. - CT CT Chest CT Interpretation: No Acute Changes - impression: normal CT of the CT Interpretation Completed By: Radiologist CT Neck CT Interpretation: No Acute Changes - Impression: normal CT of the neck. Dr. Butt has reviewed this report. CT Interpretation Completed By: Radiologist Headache Course/Dx - Course Course Of Treatment: CT chest and CT neck and sinuses done- ALL neg for infiltrates or fluid collections in all sinuses. Pt likely has reactive airway dz for 3 solid years of heavily smoking, and in light of frequent respiratory infections like a COPDer, advised to f/u with genetic technologist to obtain a PFT to dx COPD vs asthma for appropriate objective dx. Also f/u with PCP for persistent right anterior cervical LAD and right posterior auricular LN tenderness. Monosopt test neg. - Diagnoses Provider Diagnoses: Lymphadenitis Discharge - Sign-Out/Discharge Documenting (check all that apply): Discharge/Admit/Transfer - Discharge Plan Condition: Stable Disposition: HOME Discharge Disposition Comment: discharge home Patient Education Materials: Lymphadenopathy (ED) Referrals: Francisco Vázquez MD [Primary Care Provider] - 1 Week Additional Instructions: Please follow up with your primary care physician next week for a mono spot test. Return to the emergency department for any new or worsening symptoms. - Billing Disposition and Condition Condition: STABLE Disposition: Home The documentation as recorded by the Kathleen dillard Elizabeth accurately reflects the service I personally performed and the decisions made by , Emilie Butt MD.
== END | disposition home or self-care (01) ==
LOC: ED 15:46
DX: I88.9 Nonspecific lymphadenitis, unspecified (principal); Z87.891 Personal history of nicotine dependence
CPT/HCPCS: 36415; 70490; 71260; 80053; 85025; 86308; 99282; Q9967

== ENCOUNTER 2017-12-29 07:08 | Emergency (ER) | payer BC ==
[2017-12-29] MEDS ORDERED: LORazepam TAB(*) 1 MG PO ONE (07:25)
[2017-12-29] MEDS ORDERED: Albuterol/Ipratropium NEB.SOL* Albuterol 2.5 MG/Ipratropium 0.5 MG 3 ML INH ONE (07:25)
[2017-12-29 07:46] LABS: ABS Basophils 0.1 10^3/ul (0-0.2); ABS Eosinophils 0 10^3/ul (0-0.6); ABS Lymphocytes 1.7 10^3/ul (1.0-4.8); ABS Monocytes 0.7 10^3/ul (0-0.8); ABS Nucleated RBC 0 10^3/ul; Eosinophil % 0.4 % (0-6); Hematocrit 43 % (42-52); Lymphocyte % 17.8 % (25-47); Mean Corpuscular HGB Conc 35 g/dl (31-36); Mean Corpuscular Hemoglobin 31 pg (27-31); Mean Corpuscular Volume 89 fL (80-94); Mean Platelet Volume 8.3 um3 (7.4-10.4); Nucleated Red Blood Cells % 0.2; Platelet Count 194 10^3/ul (150-450); Red Blood Count 4.83 10^6/ul (4.00-5.40); Red Cell Distribution Width 13 % (10.5-15); White Blood Count 9.5 10^3/ul (3.5-10.8)
--- NOTE | 2017-12-29 07:53 | ED ---
Substance Abuse/Use - HPI Summary HPI Summary: Patient is a 22-year-old male who is been seen several times for a variety of complaints presenting to the ED today 3 hours after taking mushrooms and now stating he is having a "anxiety attack." He is extremely agitated on arrival. He states he did not call the ambulance befriended. He states he does not recall the events prior to him coming here except that he remembers being at a park, fell down hit his head on the cement and had an LOC. Friends called ambulance and patient was transported here. He denies any SI/HI. Denies any alcohol use. - History Of Current Complaint Chief Complaint: EDSubstanceAbuse Stated Complaint: GENERAL Time Seen by Provider: 12/29/17 07:20 Hx Obtained From: Patient Ingestion History: Type/Name Of Drug - mushrooms Overdose Characteristics: Oral, Inhalation Timing Of Abuse: Binge Use Severity Initially: Moderate Severity Currently: Moderate Character: Anxious, Angry, Frustrated Alleviating Factor(s): Nothing Associated Signs And Symptoms: Hallucinating, Paranoid Behavior, Cough, Intentional Ingestion Related Hx: Drug/Alcohol Last Used @ - 3 hours [employer] - Risk Factor(s) Completed Suicide Risk Factors: Male, White [place] - Allergies/Home Medications Allergies/Adverse Reactions: Allergies Allergy/AdvReac Type Severity Reaction Status Date / Time No Known Allergies Allergy Verified 12/23/17 15:53 PMH/Surg Hx/FS Hx/Imm Hx Previously Healthy: Yes Endocrine/Hematology History: Denies: Hx Anticoagulant Therapy, Hx Diabetes, Hx Thyroid Disease Cardiovascular History: Denies: Hx Hypertension Respiratory History: Reports: Other Respiratory Problems/Disorders - PNA, HEAVY SMOKER FOR LAST 3 YEARS Denies: Hx Asthma, Hx Chronic Obstructive Pulmonary Disease (COPD) GI History: Denies: Hx Ulcer Sensory History: Denies: Hx Legally Blind Opthamlomology History: Denies: Hx Legally Blind - Surgical History Surgery Procedure, Year, and Place: Tubes in ears as a child - Immunization History Date of Tetanus Vaccine: 08/2017 Immunizations Up to Date: Yes Infectious Disease History: No Infectious Disease History: Denies: Hx Clostridium Difficile, Hx Hepatitis, Hx Human Immunodeficiency Virus (HIV), Hx of Known/Suspected MRSA, Hx Shingles, Hx Tuberculosis, Hx Known/ Suspected VRE, Hx Known/Suspected VRSA, History Other Infectious Disease, Traveled Outside the [place] in Last 30 Days - Family History Known Family History: Positive: None Negative: Hypertension, Diabetes - Social History Occupation: Unemployed Lives: Alone Alcohol Use: Weekly Hx Substance Use: No Substance Use Type: Reports: Marijuana, Tranquilizers, Other Substance Use Comment - Amount & Last Used: occassionally, mushrooms Hx Tobacco Use: Yes - not currently Smoking Status (MU): Former Smoker Type: Cigarettes Review of Systems Constitutional: Negative Negative: Fever, Chills, Fatigue Negative: Photophobia, Blurred Vision, Diplopia Negative: Palpitations, Chest Pain Positive: Shortness Of Breath, Cough Negative: Abdominal Pain, Vomiting, Diarrhea, Nausea Positive: Other - abrasions to the bilateral hands and elbows, bruising to the R knee Positive: Anxious All Other Systems Reviewed And Are Negative: Yes Physical Exam Triage Information Reviewed: Yes Vital Signs On Initial Exam: Initial Vitals Temp Pulse Resp BP Pulse Ox 98.6 F 117 22 129/99 100 12/29/17 07:12 12/29/17 07:12 12/29/17 07:12 12/29/17 07:12 12/29/17 07:12 Vital Signs Reviewed: Yes Appearance: Positive: Well-Appearing, Well-Nourished Skin: Positive: Warm, Skin Color Reflects Adequate Perfusion, Other - abrasions to the bilateral hands, R knee and elbows Head/Face: Positive: Normal Head/Face Inspection Neck: Positive: Supple, No Lymphadenopathy Respiratory/Lung Sounds: Positive: Clear to Auscultation, Breath Sounds Present Cardiovascular: Positive: RRR, Pulses are Symmetrical in both Upper and Lower Extremities Musculoskeletal: Positive: Strength/ROM Intact Neurological: Positive: Alert, Oriented to Person Place, Time, Slurred Speech Psychiatric: Positive: Anxious AVPU Assessment: Alert Diagnostics - Vital Signs Vital Signs Temp Pulse Resp BP Pulse Ox 12/29/17 07:24 16 12/29/17 07:21 111 100 12/29/17 07:19 129/99 12/29/17 07:12 98.6 F 117 22 129/99 100 - Laboratory Lab Results: Lab Results 12/29/17 Range/Units 07:37 WBC 9.5 (3.5-10.8) 10^3/ul RBC 4.83 (4.00-5.40) 10^6/ul Hgb 15.0 (14.0-18.0) g/dl Hct 43 (42-52) % MCV 89 (80-94) fL MCH 31 (27-31) pg MCHC 35 (31-36) g/dl RDW 13 (10.5-15) % Plt Count 194 (150-450) 10^3/ul MPV 8.3 (7.4-10.4) um3 Neut % (Auto) 73.5 (38-83) % Lymph % (Auto) 17.8 L (25-47) % Hayes % (Auto) 7.5 H (0-7) % Eos % (Auto) 0.4 (0-6) % Baso % (Auto) 0.8 (0-2) % Absolute Neuts (auto) 7.0 (1.5-7.7) 10^3/ul Absolute Lymphs (auto) 1.7 (1.0-4.8) 10^3/ul Absolute Monos (auto) 0.7 (0-0.8) 10^3/ul Absolute Eos (auto) 0 (0-0.6) 10^3/ul Absolute Basos (auto) 0.1 (0-0.2) 10^3/ul Absolute Nucleated RBC 0 10^3/ul Nucleated RBC % 0.2 Result Diagrams: 12/29/17 07:37 12/29/17 07:37 Lab Statement: Any lab studies that have been ordered have been reviewed, and results considered in the medical decision making process. Course/Dx - Course Course Of Treatment: On physical examination, patient is extremely agitated and coughing. He states he needs a nebulizer treatment and is currently having an anxiety attack. He denies any hx of anxiety, SI/HI. Provider explained will need to keep him to rule out head injury, check a chest x-ray and obtained some labs, to which he became very agitated and is wanting to leave AMA. He is refusing CT. Agreeable to labs and xray. Alcohol 230. Mother at bedside. Willing to take home. Patient is very tearful and is no longer agitated. I believe he is safe for discharge at this time and symptoms are a result of his binge alcohol use on this date. - Diagnoses Differential Diagnosis/HQI/PQRI: Positive: Alcohol Abuse, Anxiety, Depression, Drug Withdrawal, Other - drug use, mushroom use Provider Diagnoses: Alcohol intoxication Discharge - Sign-Out/Discharge Documenting (check all that apply): Discharge/Admit/Transfer - Discharge Plan Condition: Stable Disposition: HOME Referrals: Francisco Vázquez MD [Primary Care Provider] - - Billing Disposition and Condition Condition: STABLE Disposition: Home
[2017-12-29 08:04] LABS: EGFR Non-African American 89.2 (>60)
[2017-12-29 08:11] LABS: Urine Appearance Clear; Urine Blood Negative (Negative); Urine Color Colorless; Urine Ketones Negative (Negative); Urine Protein Negative (Negative); Urine Specific Gravity 1.001 (1.010-1.030); Urine Urobilinogen Negative (Negative)
--- NOTE | 2017-12-29 08:44 | RAD ---
Indication: Chest pain. Single frontal view of the chest performed at 0755 hours was reviewed. Comparison is made with previous exam dated December 09, 2017. No mediastinal shift is noted. Heart is of normal size and configuration. Lung burnham appear clear. IMPRESSION: NO ACTIVE CARDIOPULMONARY DISEASE IS NOTED.
[2017-12-29 09:44] VITALS: BP 131/77
== END 2017-12-29 09:46 | disposition home or self-care (01) ==
LOC: ED 07:08
DX: F10.129 Alcohol abuse with intoxication, unspecified (principal); Z87.891 Personal history of nicotine dependence
CPT/HCPCS: 36415; 71045; 80053; 80307; 80320; 80329; 81003; 84443; 85025; 99284; A9270-GY; G0480

== ENCOUNTER 2018-01-19 17:57 | Emergency (ER) | payer BC ==
[2018-01-19 18:15] VITALS: BP 119/56
--- NOTE | 2018-01-19 19:07 | UC ---
Minor Trauma HPI - HPI Summary HPI Summary: This is Beverley dillard, documenting for attending, Emilie Butt MD. This patient is a 22 year old M presenting to [facility] accompanied by his mother with a chief complaint of left lateral and middle back pain after falling down a slight of stairs while carrying an 80 pound amplifier. Pain is 7/ 10, upon triage. Pain worsened with rotation. Denies LOC, neck pain, and neurological symptoms in the extremities. He states the amplifier lightly hit his head, but denies headache and head contusion. He denies concern for head injury. - History of Current Complaint Chief Complaint: UCBackPain Stated Complaint: BACK INJURY Time Seen by Provider: 01/19/18 18:28 Hx Obtained From: Patient Onset/Duration: Lasting Hours Onset Of Pain: Immediate Pain Intensity: 7 Pain Scale Used: 0-10 Numeric Mechanism Of Injury: Fall From A Standing Position - down flight of stairs Aggravating Factor(s): Movement Alleviating Factor(s): Nothing Associated Signs And Symptoms: Negative: Loss Of Consciousness, Ecchymosis, Swelling - Allergies/Home Medications Allergies/Adverse Reactions: Allergies Allergy/AdvReac Type Severity Reaction Status Date / Time No Known Allergies Allergy Verified 01/19/18 18:15 PMH/Surg Hx/FS Hx/Imm Hx Previously Healthy: Yes Other History Of: Negative For: Anticoagulant Therapy - Surgical History Surgical History: Yes Surgery Procedure, Year, and Place: Tubes in ears as a child - Family History Known Family History: Negative: Hypertension, Diabetes - Social History Alcohol Use: Weekly Substance Use Type: None Substance Use Comment - Amount & Last Used: occassionally, mushrooms Smoking Status (MU): Former Smoker Type: Cigarettes - Immunization History Most Recent Tetanus Shot: UTD Hx Tetanus, Diphtheria Vaccination: Yes - 2014 Vaccination Up to Date: Yes Review of Systems Constitutional: Negative Musculoskeletal: Myalgia - back pain Neurological: Negative All Other Systems Reviewed And Are Negative: Yes Physical Exam - Summary Physical Exam Summary: Appearance: Well-appearing, Well-nourished Skin: Warm, abrasions on over midback from fall, no bleeding Eyes: Normal ENT: Normal Neck: Supple, nontender Respiratory: Clear to auscultation Cardiovascular: Regular rate, regular rhythm. Normal S1, S2. Abdomen: Soft, nontender Musculoskeletal: Strength/ROM Intact Tender to palpation mid thoracic spine and posterior ribs Neurological: Normal, A&Ox3 Psychiatric: Normal General: No acute distress Triage Information Reviewed: Yes Vital Signs: Initial Vital Signs Temp 98.3 F 01/19/18 18:10 Pulse 88 01/19/18 18:10 Resp 18 01/19/18 18:10 BP 119/56 01/19/18 18:10 Pulse Ox 97 01/19/18 18:10 Vital Signs Reviewed: Yes Minor Trauma Course/Dx - Course Course Of Treatment: technology advisor not present today, so offered XR of thoracic spine , CXR and B/L rib series but after waiting, pt declined to wait for XR, and instead stated he would rather f/u with PCP in 3 days asking to be discharged - Differential Dx/Diagnosis Provider Diagnoses: thoracic chest wall pain. fall from stairs Discharge - Sign-Out/Discharge Documenting (check all that apply): Patient Departure - Discharge Plan Condition: Stable Disposition: HOME Patient Education Materials: Chest Wall Pain (ED) Referrals: Francisco Vázquez MD [Primary Care Provider] - Additional Instructions: Go to ER if pain worsens - Billing Disposition and Condition Condition: STABLE Disposition: Home
== END 2018-01-19 19:25 | disposition home or self-care (01) ==
LOC: UCEAST 17:57
DX: R07.89 Other chest pain (principal); M54.89 Other dorsalgia; W10.9XXA Fall (on) (from) unspecified stairs and steps, initial encounter; Z87.891 Personal history of nicotine dependence; Y92.9 Unspecified place or not applicable
CPT/HCPCS: 99201; G0463

== ENCOUNTER 2018-02-04 15:27 | Emergency (ER) | payer BC ==
--- OUTSIDE RECORDS SUMMARY | 2018-02-04 15:32 | XMS REPORT ---
:1995 External Reference #:[id number] Author Organization [employer] Address [address] [place] [address] [place] [address] Phone [phone] Care Team Providers Name Role Phone Francisco Vázquez MD Primary Care Physician Unavailable Payers Type Date Identification Numbers Payment Provider Subscriber Commercial Effective: Policy Number: [employer] Mateusz Uhlig 2017 [id number] PayID: [id number] [address] [address] [place] [address] Problems Description No Information Family History Date Family Member(s) Problem(s) Comments General Lung Cancer Grandfather, passed from General Heart Disease All 4 grandparents Social History Type Date Description Comments Marital Status Single Lives With Roommate 3 Lives With 1 cat Since May Lives With 1 dog At mom's home Occupation Currently Working Occupation [employer] store Cigarette Use Former Cigarette Smoker 1 Pack Daily 1 year Cigarette Use Currently smokes 1-5 Cigarettes Daily 1 year ETOH Use Drinks 3 Alcoholic Beverages Per Week Smoking Patient is a former smoker Recreational Drug Use Denies Drug Use Daily Caffeine Consumes on average 1 cup of regular coffee per day Exercise Type/Frequency Exercises regularly Exercise Type/Frequency Bikes daily Allergies, Adverse Reactions, Alerts Date Description Reaction Status Severity Comments 12/20/2017 NKDA active Medications Medication Date Status Form Strength Qnty SIG Indications Ordering Provider Albuterol 12/20/ Active Nebulizer 0.63mg/3M 675ml 1 unit, nebl, J98.4 Sharonda Sulfate 2018 L every 6 Leatha, hours, as MD needed Budesonide 12/20/ Active Suspension 0.25mg/2M 180un use one vial J98.4 Sharonda 2018 L its in nebulizer Leatha, twice daily MD Nebulizer 12/20/ Active Device 1unit 1 unit J98.4 Sharonda 2018 s nebulization Leatha, with MD albuterol every 6 hours and as needed Nebulizer 12/20/ Active Kit 1unit 1 unit J98.4 Sharonda Kit/Tubing/Mo 2018 s nebulization Leatha, uthpiece every 4- 6 MD hours as needed Flovent HFA / Active Aerosol 220mcg/Ac 1 puff two Gurpreet, 0000 t times per day MD Francisco Ventolin HFA / Active Aerosol 108(90Bas As needed, Maggie 0000 e) 5-6x per day IV , Zane mcg/Act S, M.D. Fluticasone / Active Suspension 50mcg/Act As needed, Unknown Propionate 0000 has not started yet 12/20/17 Advil 00/ Active Tablets 200mg as needed Unknown 0000 Vital Signs Date Vital Result Comment 01/21/2018 Height 75 inches 6'3" Weight 190.00 lb Heart Rate 70 /min BP Systolic Sitting 112 mmHg Lue regular cuff BP Diastolic Sitting 72 mmHg Lue regular cuff Respiratory Rate 20 /min O2 % BldC Oximetry 98 % BMI (Body Mass Index) 23.7 kg/m2 12/20/2017 Height 75 inches 6'3" Weight 183.12 lb Heart Rate 80 /min BP Systolic Sitting 134 mmHg Lue reg cuff BP Diastolic Sitting 92 mmHg Lue reg cuff Respiratory Rate 18 /min O2 % BldC Oximetry 98 % On Ra BMI (Body Mass Index) 22.9 kg/m2 Neck Circumference in inches 15.5 Results Description No Information Procedures Description No Information Encounters Type Date Location Provider CPT E/M Dx Office Visit 12/20/2017 [facility] [place] [address] J98.4 2:[facility] K21.9 Plan of Care Future Appointment(s):02/18/2018 2:00 pm - Sharonda Zhang MD at [facility]01/21/2018 - Krissy Recinos N.P.J98.4 Other disorders of lungNew Labs:Rast Aspergillus FumigatusAspergillus Igg AntibodiesAspergilus Niger Ige Allergen QLCBC Auto DiffComp Metabolic PanelImmunoglobulin E (Ige) Aspergillus (Galactomannan) AgC Reactive ProteinNew Xrays:Chest PA & Lat 2 VWSUS Abdomen CompleteFollow up:3 weeks f/u KodaliRecommendations:Budesonide twice daily. Albuterol 3x daily.K21.9 Gastro-esophageal reflux disease without esophagitis
[2018-02-04 15:53] VITALS: BP 126/80
--- NOTE | 2018-02-04 16:17 | UC ---
Abdominal Pain Male HPI - HPI Summary HPI Summary: 22 y/o male presents to the urgent care c/o RLQ abdominal pain for the past 2 days. Pt reports abdominal pain started on RUQ and then radiating to the RLQ. He took Naproxen on the first day which resolved for few hrs and then returned. Pain is sharp 7/10 intermittent and associated w/ decrease appetite, nausea, and lightheadedness. He ate a yogurt this morning, but feels decrease appetite. He developed loose stools yesterday. Pt denies fever, SOB, chest pain , Hx STD's or Hx of kidney stones, - History of Current Complaint Chief Complaint: UCAbdominalPain Stated Complaint: ABDOMINAL PAIN Time Seen by Provider: 02/04/18 15:57 Hx Obtained From: Patient Onset/Duration: Sudden Onset, Lasting Days - 2 days, Still Present, Worse Since - this morning Timing: Constant Severity Initially: Mild Severity Currently: Moderate Pain Intensity: 7 Pain Scale Used: 0-10 Numeric Location: Discrete At: RUQ, Discrete At: RLQ Radiates: Yes Radiates to: RLQ Character: Colicy, Sharp Aggravating Factor(s): Food Alleviating Factor(s): Rest Associated Signs And Symptoms: Positive: Nausea, Diarrhea - loose stools, Other - lightheadness. Negative: Diaphoresis, Fever, Cough, Chest Pain, Dizzy, Back Pain, Constipation, Blood in Stool, Urinary Symptoms - Risk Factors Testicular Torsion: Negative Cardiac Risk Factors: Negative - Allergies/Home Medications Allergies/Adverse Reactions: Allergies Allergy/AdvReac Type Severity Reaction Status Date / Time No Known Allergies Allergy Verified 02/04/18 15:53 Home Medications: Home Medications Montelukast Sodium TAB* [Singulair 10 MG TAB*] 1 tab PO DAILY 02/04/18 [History Confirmed 02/04/18] PMH/Surg Hx/FS Hx/Imm Hx Previously Healthy: Yes Respiratory History: Asthma Other History Of: Negative For: Anticoagulant Therapy - Surgical History Surgical History: Yes Surgery Procedure, Year, and Place: Tubes in ears as a child - Family History Known Family History: Positive: Hypertension Negative: Diabetes - Social History Occupation: Employed Full-time Lives: With Family Alcohol Use: Occasionally Substance Use Type: None Substance Use Comment - Amount & Last Used: occassionally, mushrooms Smoking Status (MU): Former Smoker Type: Cigarettes - Immunization History Most Recent Tetanus Shot: UTD Hx Tetanus, Diphtheria Vaccination: Yes - 2015 Vaccination Up to Date: Yes Review of Systems Constitutional: Negative Skin: Negative Eyes: Negative ENT: Negative Respiratory: Negative Cardiovascular: Negative Gastrointestinal: Abdominal Pain - RUQ and RLQ, Diarrhea, Nausea Genitourinary: Negative Motor: Negative Neurovascular: Negative Musculoskeletal: Negative Neurological: Negative Psychological: Negative Is Patient Immunocompromised?: No All Other Systems Reviewed And Are Negative: Yes Physical Exam - Summary Physical Exam Summary: Vital Signs Reviewed: Yes General:Patient is a well developed and nourished male is sitting in the examining table w/ mild pain distress holding his abdomen. No acute respiratory distress. Eyes: Positive: Conjunctiva Clear - PERRLA, EOMI, fundi grossly normal ENT: Positive: Normal ENT inspection, Hearing grossly normal, Pharynx normal, TMs normal Neck: Positive: Supple, Nontender, No Lymphadenopathy Respiratory: Positive: Chest non-tender, Lungs clear, Normal breath sounds, No respiratory distress Cardiovascular: Positive: RRR,S1 and S2 present, No Murmur, Pulses Normal, Brisk Capillary Refill Abdomen Description: Positive: Abd: Flat with no distention. No surface trauma , scars, incisions. hyperactive bowel sounds present in all four quadrants. Point tenderness on the RLQ, no guarding or rigidity to palpation. No masses palpated, no pulsation in epigastric area. No organomegaly. Negative Marquette signs. Mild periumbilical tenderness. No rebound in the lower quadrants. Positive over McBurneys point. Good femoral pulses bilaterally. No hernia noted. No CVAT bilaterally Musculoskeletal: Positive: Strength Intact, ROM Intact, No Edema,FROM in all major joints, no edema, no cyanosis or clubbing. Neuro: Alert and oriented x 3. No acute neurological deficits. Speech is normal. Psychological: WNL Skin: Dry and warm Triage Information Reviewed: Yes Vital Signs: Initial Vital Signs Temp 98.4 F 02/04/18 15:49 Pulse 84 02/04/18 15:49 Resp 12 02/04/18 15:49 BP 126/80 02/04/18 15:49 Pulse Ox 100 02/04/18 15:49 Abd Pain Male Course/Dx - Course Course Of Treatment: 22 y/o male presents to the urgent care c/o RLQ abdominal pain for the past 2 days. Pt reports abdominal pain started on RUQ and then radiating to the RLQ. He took Naproxen on the first day which resolved for few hrs and then return. Pain is sharp 7/10 intermittent and associated w/ decrease appetite, nausea, and lightheadeness. He ate a yogurt this morning, but feels decrease appetite. He developed loose stools yesterday. Pt denies fever, SOB, chest pain, Hx STD's or Hx of kidney stones. Hx obtained. PT os hemodynamically stable w/ PT w/ Point tenderness over the periumbilical area and over McBurneys point on examination. Pt w/ decrease appetite. Pt explained the need to r/o appendicitis or any other etiology on the RLQ. Pt needs Abdominal CT w/ contrast. I discussed Pt's symptoms w/ Dr Saenz and he agreed Pt should be transfer to the ER. Pt declined ambulance transfer since he states he can't afford it. I spoke to DR Romero at the [facility]. Pt advised on the risks of not taking ambulance transfer. PT left the clinic ambulating, hemodynamically stable, A&OX3. Pt understood and agreed w/ D/C instructions. - Differential Dx/Clinical Impression Differential Diagnosis/HQI/PQRI: Appendicitis, Gall Bladder Disease, Peptic Ulcer Disease, Renal Colic, Ureteral Stone, Urinary Tract Infection Provider Diagnoses: 1- Acute RLQ anbdominal pain. 2- Nausea Discharge - Sign-Out/Discharge Documenting (check all that apply): Patient Departure - D/C w/ highly recomendation to go to the [facility] ER for further management of his presenting symptoms. - Discharge Plan Condition: Stable Disposition: HOME-RECOMMEND TO ED Patient Education Materials: Acute Abdominal Pain (ED) Referrals: Francisco Vázquez MD [Primary Care Provider] - Additional Instructions: I think you need a higher level or care for your presenting symptoms. I highly recommend you to go to the ER for further evaluation and treatment on your RLQ abdominal pain to r/o appendicitis or other abdominal etiology. The risks of not going can be , sepsis, peritonitis, etc. I spoke to the ER attending Dr Romero . They are expecting you. - Billing Disposition and Condition Condition: STABLE Disposition: Home-Recommend to ED
== END 2018-02-04 16:16 | disposition home health service (06) ==
LOC: UCEAST 15:27
DX: R10.31 Right lower quadrant pain (principal); R11.0 Nausea; R19.7 Diarrhea, unspecified; R42 Dizziness and giddiness; J45.909 Unspecified asthma, uncomplicated; Z82.49 Family history of ischemic heart disease and other diseases of the circulatory system; Z87.891 Personal history of nicotine dependence
CPT/HCPCS: 99212; G0463

== ENCOUNTER 2018-02-04 16:34 | Emergency (ER) | payer BC ==
[2018-02-04] MEDS ORDERED: NS 0.9% 1000 ML* 1,000 ML IV ONE (17:57)
--- NOTE | 2018-02-04 17:58 | ED ---
Abdominal Pain/Male - HPI Summary HPI Summary: The pt is a 22 y/o male presenting [facility] the [facility] c/o RLQ pain since 2 days ago. He notes a subjective slight fever for the last 2 days and nausea, but denies vomiting. As per nurses notes, the pt feels like "he swallowed a firecracker." He denies PMHx of nephrolithiasis but reports a PMHx of reactive airway disease. This is scribe Tessy Pedro documenting for attending Dr. Nick MD. - History of Current Complaint Chief Complaint: EDAbdPain Stated Complaint: RT SIDE ABD PAIN Time Seen by Provider: 02/04/18 17:47 Hx Obtained From: Patient Onset/Duration: Lasting Days - 2 days, Still Present Timing: Constant Severity Initially: Severe Severity Currently: Severe Pain Intensity: 8 Pain Scale Used: 0-10 Numeric Location: Discrete At: RLQ Associated Signs And Symptoms: Positive: Fever, Nausea. Negative: Vomiting - Allergies/Home Medications Allergies/Adverse Reactions: Allergies Allergy/AdvReac Type Severity Reaction Status Date / Time No Known Allergies Allergy Verified 02/04/18 15:53 PMH/Surg Hx/FS Hx/Imm Hx Previously Healthy: No Endocrine/Hematology History: Denies: Hx Anticoagulant Therapy, Hx Diabetes, Hx Thyroid Disease Cardiovascular History: Denies: Hx Hypertension Respiratory History: Reports: Hx Asthma, Other Respiratory Problems/Disorders - PNA, HEAVY SMOKER FOR LAST 3 YEARS, REACTIVE AIRWAY DISEASE Denies: Hx Chronic Obstructive Pulmonary Disease (COPD) GI History: Reports: Other GI Disorders Denies: Hx Ulcer History: Denies: Hx Kidney Stones Sensory History: Denies: Hx Legally Blind Opthamlomology History: Denies: Hx Legally Blind - Surgical History Surgery Procedure, Year, and Place: Tubes in ears as a child - Immunization History Date of Tetanus Vaccine: 08/2017 Infectious Disease History: No Infectious Disease History: Denies: Hx Clostridium Difficile, Hx Hepatitis, Hx Human Immunodeficiency Virus (HIV), Hx of Known/Suspected MRSA, Hx Shingles, Hx Tuberculosis, Hx Known/ Suspected VRE, Hx Known/Suspected VRSA, History Other Infectious Disease, Traveled Outside the [place] in Last 30 Days - Family History Known Family History: Positive: Cardiac Disease, Hypertension, Other - [place], [place] Negative: Diabetes - Social History Occupation: Unemployed Lives: With Family Alcohol Use: Occasionally Hx Substance Use: No Substance Use Type: Reports: None Substance Use Comment - Amount & Last Used: occassionally, mushrooms Hx Tobacco Use: Yes - not currently Smoking Status (MU): Former Smoker Type: Cigarettes Review of Systems Positive: Fever - slight subjective fever Positive: Abdominal Pain - RLQ , Nausea. Negative: Vomiting All Other Systems Reviewed And Are Negative: Yes Physical Exam - Summary Physical Exam Summary: VITAL SIGNS: Reviewed. GENERAL: Patient is a well-developed and nourished male who is lying comfortable in the stretcher. Patient is not in any acute respiratory distress. HEAD AND FACE: Normocephalic and atraumatic. EYES: PERRLA, EOMI x 2, No injected conjunctiva. EARS: Hearing grossly intact. Ear canals and tympanic membranes are WNL. MOUTH: Oropharynx within normal limits. NECK: Supple, trachea is midline, no adenopathy, no JVD. CHEST: Symmetric, no tenderness at palpation LUNGS: Clear to auscultation bilaterally. No wheezing or crackles. CVS: RRR, S1 and S2 present, no murmurs or gallops appreciated. ABDOMEN: Soft, RLQ tenderness. No signs of distention. Positive bowel sounds. No rebound no guarding, and no masses palpated. No abdominal bruit or pulsations. EXTREMITIES: FROM in all major joints, no edema, no cyanosis or clubbing. NEURO: Alert and oriented x 3. No acute neurological deficits. Speech is normal. SKIN: Dry and warm Triage Information Reviewed: Yes Vital Signs On Initial Exam: Initial Vitals Temp Pulse Resp BP Pulse Ox 98.1 F 88 16 128/77 98 02/04/18 16:44 02/04/18 16:44 02/04/18 16:44 02/04/18 16:44 02/04/18 16:44 Vital Signs Reviewed: Yes Diagnostics - Vital Signs Vital Signs Temp Pulse Resp BP Pulse Ox 02/04/18 16:44 98.1 F 88 16 128/77 98 - Laboratory Result Diagrams: 02/04/18 18:06 02/04/18 18:06 Lab Statement: Any lab studies that have been ordered have been reviewed, and results considered in the medical decision making process. Abdominal Pain Fem Course/Dx - Course Assessment/Plan: The patient is a 22-year-old male who presents to the emergency department with chief complaint of right upper quadrant pain. The patient was initially seen in the urgent care. In the physical exam the patient has right lower quadrant tenderness. At this point the work is without any significant abnormality. The patient was awaiting for abdominal pelvic CT. The patient will be signed out to Dr. Posada for at shift change. He will follow up the abdominal and pelvic CT and further disposition of the patient. The patient is hemodynamically stable alert and oriented 3. - Diagnoses Differential Diagnosis/HQI/PQRI: Other - Abdominal pain Provider Diagnoses: Abdominal pain Discharge - Sign-Out/Discharge Documenting (check all that apply): Sign-Out Patient - Awaiting CT Abd/Pel Signing out patient TO: Mario Horowitz - Discharge Plan Referrals: Francisco Vázquez MD [Primary Care Provider] -
[2018-02-04 18:17] LABS: ABS Basophils 0 10^3/ul (0-0.2); ABS Eosinophils 0.1 10^3/ul (0-0.6); ABS Lymphocytes 1.2 10^3/ul (1.0-4.8); ABS Monocytes 0.4 10^3/ul (0-0.8); ABS Neutrophils 5.3 10^3/ul (1.5-7.7); ABS Nucleated RBC 0 10^3/ul; Hematocrit 44 % (42-52); Lymphocyte % 16.7 % (25-47); Mean Corpuscular HGB Conc 34 g/dl (31-36); Mean Corpuscular Hemoglobin 31 pg (27-31); Mean Corpuscular Volume 90 fL (80-94); Mean Platelet Volume 8.3 um3 (7.4-10.4); Nucleated Red Blood Cells % 0; Platelet Count 176 10^3/ul (150-450); Red Blood Count 4.91 10^6/ul (4.00-5.40); Red Cell Distribution Width 13 % (10.5-15); White Blood Count 6.9 10^3/ul (3.5-10.8)
[2018-02-04 18:41] LABS: EGFR Non-African American 94.3 (>60)
[2018-02-04] MEDS ORDERED: Morphine VIAL* 10 MG/ML 1 ML VIAL IV ONE (18:43)
[2018-02-04] MEDS ORDERED: Ondansetron INJ* 2 MG/ML VIAL IV ONE (18:43)
[2018-02-04] MEDS ORDERED: Morphine INJ* 2 MG/ML 1 ML SYRINGE (TWO MG - NEW SYRINGE VERSION) ONE (19:08)
[2018-02-04] MEDS ORDERED: Morphine INJ* 2 MG/ML 1 ML SYRINGE (TWO MG - NEW SYRINGE VERSION) IV ONE (19:09)
[2018-02-04] MEDS ORDERED: Iohexol 300* (CONTRAST) 10 ML SDV IV ONE (19:27)
[2018-02-04 19:54] LABS: Urine Appearance Clear; Urine Blood Negative (Negative); Urine Color Straw; Urine Ketones Negative (Negative); Urine Protein Negative (Negative); Urine Specific Gravity 1.005 (1.010-1.030); Urine Urobilinogen Negative (Negative)
--- NOTE | 2018-02-04 21:05 | ED ---
Progress - Progress Note Progress Note: This is scribe Blayne Rios documenting for attending Andre Horowitz MD. CT abd/pel impressions were as follows: No CT findings to correlate with patient 's symptomatology. Specifically no appendicitis. This report was reviewed by ED physician. I, Dr. Horowitz, personally performed the services described in this documentation as scribed in my presence and it is both accurate and complete. Re-Evaluation - Re-Evaluation First Eval Re-Evaluation Time: 21:03 Comment: Discussed results of CT abd/pel with patient. Patient will be discharged to home and follow up with PCP in 1-2 days. The patient is agreeable with this plan. Course/Dx - Course Course Of Treatment: Patient was signed out from Dr. Romero to Dr. Horowitz. CT abd/pel impressions were as follows: No CT findings to correlate with patient's symptomatology. Specifically no appendicitis. Results were discussed with patient. The patient was discharged to home and instructed to follow up with PCP in 1-2 days. The patient was agreeable with this plan. Patient was diagnosed with abdominal pain. - Diagnoses Provider Diagnoses: Abdominal pain Discharge - Sign-Out/Discharge Documenting (check all that apply): Patient Departure - discharge - Discharge Plan Condition: Stable Disposition: HOME Patient Education Materials: Abdominal Pain (ED) Referrals: Francisco Vázquez MD [Primary Care Provider] - 2 Days Additional Instructions: Return to ED for any changing or worsening symptoms. Follow up with primary care physician in 1-2 days.
[2018-02-04 21:34] VITALS: BP 120/55
--- NOTE | 2018-02-05 07:34 | RAD ---
Indication: Right lower quadrant pain. Contrast: Administered 115.3 ml of OMNIPAQUE 300 mg/ml CT of the abdomen and pelvis was performed after oral and IV contrast administration. Coronal and sagittal reconstructed images were obtained. Lung bases demonstrate no pleural fluid, nodules or masses. Heart is of normal size without evidence of pericardial effusion. Liver is normal in size. No focal lesions or intrahepatic duct dilatation is noted. The spleen is normal in size. The pancreas demonstrates no mass or pancreatic duct dilatation. The common duct is not dilated. Gallbladder demonstrates no calcified gallstones, pericholecystic fluid or wall thickening. No adrenal lesions are noted. The kidneys demonstrate symmetric nephrograms without focal lesions. No hydronephrosis is noted in either kidney. No dilated loops of bowel are noted. No retroperitoneal adenopathy is noted. Aorta and inferior vena cava are unremarkable. The urinary bladder is partially collapsed with mild wall thickening of the urinary bladder. This is likely due to nondistention. The appendix is visualized and is of normal caliber. No evidence of appendicitis is noted. No free fluid is noted in the pelvis. No pelvic adenopathy is noted. The prostate and seminal vesicles are unremarkable. No hernias are noted. No abnormally dilated loops of small bowel are noted. There is no evidence of bowel obstruction as there is contrast in the colon. The bony structures are otherwise unremarkable. IMPRESSION: No abnormal masses or fluid collections. Specifically no evidence of appendicitis. No evidence of bowel obstruction
== END 2018-02-04 21:32 | disposition home or self-care (01) ==
LOC: ED 16:34
DX: R10.31 Right lower quadrant pain (principal)
CPT/HCPCS: 36415; 74177; 80053; 81003; 83605; 83690; 85025; 86140; 96361; 96374; 96375; 96376; 99282; J2270; J2405; Q9967

== ENCOUNTER 2018-02-18 16:56 | Emergency (ER) | payer BC ==
[2018-02-18 17:25] VITALS: BP 129/85
--- NOTE | 2018-02-18 17:41 | UC ---
Ear Complaint HPI - HPI Summary HPI Summary: The patient is a 22 y/o M presenting to [facility] c/o right ear ache for 2 weeks. The pain is rated 6/10 in severity. He denies fever, chills, nausea, and vomiting. He had a sinus infection 12 days ago as diagnosed at [facility]. He also just took Doxycycline for 10 days. He has hx of asthma, bronchitis, and PNA. - History of Current Complaint Chief Complaint: UCRespiratory Stated Complaint: EAR ACHE Time Seen by Provider: 02/18/18 17:23 Hx Obtained From: Patient Onset/Duration: Sudden Onset, Lasting Weeks, Still Present Severity Initially: Moderate Severity Currently: Moderate Pain Intensity: 6 Pain Scale Used: 0-10 Numeric Aggravating Factors: Nothing Alleviating Factors: Nothing - Allergies/Home Medications Allergies/Adverse Reactions: Allergies Allergy/AdvReac Type Severity Reaction Status Date / Time No Known Allergies Allergy Verified 02/18/18 17:25 PMH/Surg Hx/FS Hx/Imm Hx Other Endocrine History: NEGATIVE: diabetes Other Cardiovascular History: NEGATIVE: HTN Respiratory History: Asthma, Bronchitis, Pneumonia Other History Of: Negative For: Anticoagulant Therapy - Surgical History Surgical History: Yes Surgery Procedure, Year, and Place: Tubes in ears as a child - Family History Known Family History: Positive: Cardiac Disease, Hypertension, Other - [place], [place] Negative: Diabetes - Social History Alcohol Use: Occasionally Substance Use Type: None Substance Use Comment - Amount & Last Used: occassionally, mushrooms Smoking Status (MU): Former Smoker Type: Cigarettes - Immunization History Most Recent Tetanus Shot: UTD Hx Tetanus, Diphtheria Vaccination: Yes - 2014 Vaccination Up to Date: Yes Review of Systems Constitutional: Other - NEGATIVE: fevers, chills ENT: Ear Ache - right Gastrointestinal: Other - NEGATIVE: nausea, vomiting All Other Systems Reviewed And Are Negative: Yes Physical Exam - Summary Physical Exam Summary: VITAL SIGNS: Reviewed. GENERAL: Patient is a well-developed and nourished male who is lying comfortable in the stretcher. Patient is not in any acute respiratory distress. HEAD AND FACE: Normocephalic EYES: PERRLA, EOMI x 2. EARS: Hearing grossly intact. MOUTH: Oropharynx within normal limits. NECK: Supple, trachea is midline, no adenopathy, no JVD, no carotid bruit. CHEST: Symmetric, no tenderness at palpation LUNGS: Clear to auscultation bilaterally. No wheezing or crackles. CVS: Regular rate and rhythm, S1 and S2 present, no murmurs or gallops appreciated. ABDOMEN: Soft, non-tender. Bowel sounds are normal. No abdominal abnormal pulsations. EXTREMITIES: Full ROM in all major joints, no edema, no cyanosis or clubbing. NEURO: Alert and oriented x 3. No acute neurological deficits. Speech is normal and follows commands. SKIN: Dry and warm Triage Information Reviewed: Yes Vital Signs: Initial Vital Signs Temp 97.6 F 02/18/18 17:21 Pulse 100 02/18/18 17:21 Resp 18 02/18/18 17:21 BP 129/85 02/18/18 17:21 Pulse Ox 100 02/18/18 17:21 Vital Signs Reviewed: Yes Ear Complaint Course/Dx - Course Course Of Treatment: This patient is a 22-year-old male who presents to the urgent care with chief complaint of bilateral ear pain for approximately 2 weeks. In the physical exam, the ears do not appear to be infected, they are found to be within normal limits. I checked the mouth for cavities and did not find any cavities. At this point I believe that the patient may have a skeletal pain or may have some TMJ inflammation and pain. Therefore he was recommended to take ibuprofen for pain. The patient understands and agrees. Patient will follow-up with his dentist. Patient is hemodynamically stable alert oriented 3. He will return to the urgent care or the emergency department if the symptoms worsen. He understands and agrees. - Differential Dx/Diagnosis Provider Diagnoses: earache Discharge - Sign-Out/Discharge Documenting (check all that apply): Patient Departure - Patient will be discharged home. All imaging exams completed and their final reports reviewed: Yes - Discharge Plan Condition: Stable Disposition: HOME Patient Education Materials: Earache (ED) Referrals: Francisco Vázquez MD [Primary Care Provider] - Additional Instructions: Take Acetaminophen or ibuprofen for pain or fever Increase your fluid intake Return to the or go to the emergency department if symptoms worsen Follow-up with primary care physician in next 2-3 days - Billing Disposition and Condition Condition: STABLE Disposition: Home - Attestation Statements Document Initiated by Scribe: Yes Documenting Scribe: Temi Blanchard Provider For Whom Scribe is Documenting (Include Credential): Emmett Romero MD Scribe Attestation: I, Temi Blanchard, scribed for Emmett Romero MD on 02/20/18 at 0735. Scribe Documentation Reviewed: Yes Provider Attestation: The documentation as recorded by the moniqueibeTemi accurately reflects the service I personally performed and the decisions made by me, Emmett Romero MD
--- NOTE | 2018-02-19 08:20 | UC ---
- Progress Note Progress Note: no imaging studies ordered this encounter Discharge - Sign-Out/Discharge Documenting (check all that apply): Post-Discharge Follow Up All imaging exams completed and their final reports reviewed: No Studies - Discharge Plan Condition: Stable Disposition: HOME Patient Education Materials: Earache (ED) Referrals: Francisco Vázquez MD [Primary Care Provider] - Additional Instructions: Take Acetaminophen or ibuprofen for pain or fever Increase your fluid intake Return to the UC or go to the emergency department if symptoms worsen Follow-up with primary care physician in next 2-3 days - Billing Disposition and Condition Condition: STABLE Disposition: Home
== END 2018-02-18 17:38 | disposition home or self-care (01) ==
LOC: UCEAST 16:56
DX: H92.01 Otalgia, right ear (principal); Z87.891 Personal history of nicotine dependence
CPT/HCPCS: 99211; G0463

== ENCOUNTER 2018-03-01 18:43 | Emergency (ER) | payer BC ==
--- OUTSIDE RECORDS SUMMARY | 2018-03-01 18:49 | XMS REPORT ---
:1995 External Reference #:[id number] Author Organization [facility] Address [address] [place] [address] Phone [phone] Care Team Providers Name Role Phone Francisco Vázquez MD Care Team Information Party Host/Hostess Unavailable Francisco Vázquez MD Primary Care Physician Unavailable Payers Type Date Identification Numbers Payment Provider Subscriber Commercial Policy Number: [id number] [facility] Mateusz Delaney Group Number: [id number] [address] [address] PayID: [id number] JAYA Levy [id number] Problems Description No Information Family History Date Family Member(s) Problem(s) Comments General Mother Had Ear Problems Social History Type Date Description Comments Occupation sales [employer] Cigarette Use Former cigarette smoker Alcohol Drinks alcohol occasionally Smoking Patient is a former smoker Drug Use Denies drug use Allergies, Adverse Reactions, Alerts Date Description Reaction Status Severity Comments 08/16/2004 NKDA active Medications Medication Date Status Form Strength Qnty SIG Indications Ordering Provider Rizatriptan Active Tablets 10mg 9tabs dissovle G43.101 Karl Willingham 018 Dispers one in [place] mouth as , M.D. needed for headache. may repeat in 2 hours as needed Ventolin HFA Active Aerosol 108(90Base as Unknown 000 ) mcg/Act directed Flovent 0 Active Aerosol as Unknown 000 directed Ibuprofen Active Tablets as Unknown 000 directed Vital Signs Date Vital Result Comment 02/19/2018 Weight 192.00 lb Weight in kg's 87.091 Height 74 inches 6'2" Height in cm's 188.0 cm BMI (Body Mass Index) 24.6 kg/m2 Results Description No Information Procedures Date CPT Code Description Status 02/19/2018 79757 Tympanometry Completed 02/19/2018 82207 Comprehensive Audiogram Completed 02/19/2018 38382 Fiberoptic Laryngoscopy Completed 09/19/2004 84401 Tympanometry Completed 09/19/2004 97533 Comprehensive Audiogram Completed 08/16/2004 04104 Tympanometry Completed 08/16/2004 42016 Comprehensive Audiogram Completed Encounters Type Date Location Provider CPT E/M Dx Office Visit 02/19/2018 [place],After 07/02/07 Karl Rich G43.101 1:30p Yuliana Rushing R49.0 H91.93 Office Visit 09/19/2004 4:00p [place],After 07/02/07 Karl Rushing [id number] 381.4 M.D. 389.03 Office Visit 08/16/2004 2:20p [place],After 07/02/07 Karl Rushing [id number] 381.4 M.D. 389.03 Office Visit 08/16/2004 2:15p [place],After 07/02/07 Karl Rushing [id number] 381.4 M.D. 389.03 Plan of Care 02/19/2018 - Karl Rushing M.D.G43.101 Migraine with aura, not intractable, with status migrainosusNew Medication:Rizatriptan Benzoate 10 mgComments:The patient has been having intermittent headaches with visual change that I think is migraine with Aura. We discussed common triggers, caffeine, diet drinks, wheat beers. I am going to try him on Zomig.Follow up: FU 4 to 8 [id number] DysphoniaComments:The patient has also noticed the pitch of his voice has gone down some. His nasolaryngoscopy is normal. I think this is probably related to his changing body has he has matured.H91.93 Unspecified hearing loss, bilateralComments:His hearing is normal today
[2018-03-01 19:14] VITALS: BP 108/70
[2018-03-01] MEDS ORDERED: Rabies VIRUS VACCINE (Imovax)* 2.5 UNIT/ML 1 ML IM ONE (19:28)
[2018-03-01] MEDS ORDERED: Rabies Immune Globulin 10 ML* 150 UNIT/ML VIAL IM ONE (19:29)
--- NOTE | 2018-03-01 19:36 | UC ---
Bite Injury/Animal HPI - HPI Summary HPI Summary: patient awoke to a bat flying in his room this morning - History of Current Complaint Chief Complaint: UCBiteInjury Stated Complaint: POSS EXPOSURE TO BAT Time Seen by Provider: 03/01/18 19:27 Hx Obtained From: Patient Pain Intensity: 0 Pain Scale Used: 0-10 Numeric Onset/Duration: Sudden Onset Type of Bite: Wild Animal Has Animal Been Immunized?: N/A Associated Signs And Symptoms: Positive: Negative Animal Available for Observation: No Animal Control Notified: Yes - Allergies/Home Medications Allergies/Adverse Reactions: Allergies Allergy/AdvReac Type Severity Reaction Status Date / Time No Known Allergies Allergy Verified 03/01/18 19:14 PMH/Surg Hx/FS Hx/Imm Hx Previously Healthy: No Respiratory History: Asthma Other History Of: Negative For: Anticoagulant Therapy - Surgical History Surgical History: Yes Surgery Procedure, Year, and Place: Tubes in ears as a child - Family History Known Family History: Positive: Cardiac Disease, Hypertension, Other - [place], [place] Negative: Diabetes - Social History Occupation: Employed Full-time Lives: With Family Alcohol Use: Occasionally Substance Use Type: None Substance Use Comment - Amount & Last Used: occassionally, mushrooms Smoking Status (MU): Former Smoker Type: Cigarettes - Immunization History Most Recent Tetanus Shot: 2017 Hx Tetanus, Diphtheria Vaccination: Yes - 2015 Vaccination Up to Date: Yes Review of Systems Constitutional: Negative Skin: Negative Eyes: Negative ENT: Negative Respiratory: Negative Cardiovascular: Negative Gastrointestinal: Negative Genitourinary: Negative Motor: Negative Neurovascular: Negative Musculoskeletal: Negative Neurological: Negative Psychological: Negative Is Patient Immunocompromised?: No All Other Systems Reviewed And Are Negative: Yes Physical Exam Triage Information Reviewed: Yes Appearance: Well-Appearing, No Pain Distress, Well-Nourished Vital Signs: Initial Vital Signs Temp 98.6 F 03/01/18 18:58 Pulse 79 03/01/18 18:58 Resp 16 03/01/18 18:58 BP 108/70 03/01/18 18:58 Pulse Ox 97 03/01/18 18:58 Vital Signs Reviewed: Yes Eye Exam: Normal Eyes: Positive: Conjunctiva Clear ENT Exam: Normal ENT: Positive: Normal ENT inspection, Hearing grossly normal. Negative: Trismus , Muffled voice, Hoarse voice Dental Exam: Normal Neck exam: Normal Neck: Positive: Supple, Nontender, No Lymphadenopathy Respiratory Exam: Normal Respiratory: Positive: Chest non-tender, No respiratory distress, No accessory muscle use Cardiovascular Exam: Normal Cardiovascular: Positive: RRR, Pulses Normal, Brisk Capillary Refill Musculoskeletal Exam: Normal Musculoskeletal: Positive: Strength Intact, ROM Intact, No Edema Neurological Exam: Normal Neurological: Positive: Alert, Muscle Tone Normal Psychological Exam: Normal Skin Exam: Normal Bite Injury Course/Dx - Course Course Of Treatment: immovax and RIG given patient upto date on tetanus-will follow with health department for remainder of vaccines - Differential Dx/Diagnosis Provider Diagnoses: Bat and possible rabies exposure Discharge - Sign-Out/Discharge Documenting (check all that apply): Patient Departure All imaging exams completed and their final reports reviewed: No Studies - Discharge Plan Condition: Stable Disposition: HOME Patient Education Materials: Rabies Vaccine (By injection), Rabies Immune Globulin (By injection) Referrals: Francisco Vázquez MD [Primary Care Provider] - [facility] Needed [facility] [Outside[facility] (for further vaccine) - Billing Disposition and Condition Condition: STABLE Disposition: Home
== END 2018-03-01 20:35 | disposition home or self-care (01) ==
LOC: UCEAST 18:43
DX: Z20.3 Contact with and (suspected) exposure to rabies (principal)
CPT/HCPCS: 90375; 90471; 96372; 99211; G0463

== ENCOUNTER 2018-03-27 15:49 | Emergency (ER) | payer BC ==
--- OUTSIDE RECORDS SUMMARY | 2018-03-27 15:54 | XMS REPORT | Continuity of Care Document ---
:1995 External Reference #:[id number] Author Name Karl Rushing M.D. Address [address] [place] [address] Care Team Providers Name Role Phone Francisco Vázquez MD Care Team Information Flatwork Supervisor Unavailable Francisco Vázquez MD Primary Care Physician Unavailable Payers Type Date Identification Numbers Payment Provider Subscriber Policy Number: [id number] [facility] Mateusz Delaney Group Number: [id number] [address] [address] PayID: [id number] JAYA Levy [id number] Advance Directives Description No Information Available Problems Description No Information Family History Date Family Member(s) Problem(s) Comments General Mother Had Ear Problems Social History Type Date Description Comments Sex Unknown Occupation [employer] Cigarette Use Former cigarette smoker Alcohol Drinks alcohol occasionally Tobacco Use Start: Unknown End: Patient is a former smoker Unknown Drug Use Denies drug use Smoking Status Reviewed: 03/25/18 Patient is a former smoker Allergies, Adverse Reactions, Alerts Description No Known Drug Allergies Medications Medication Date Status Form Strength Qnty SIG Indications Ordering Provider Rizatriptan Active Tablets 10mg 9tabs dissovle G43.101 Karl Willingham 018 Dispers one in [place] mouth as , M.D. needed for headache. may repeat in 2 hours as needed Ventolin HFA Active Aerosol 108(90Base as Unknown 000 ) mcg/Act directed Flovent Active Aerosol as Unknown 000 directed Ibuprofen Active Tablets as Unknown 000 directed Immunizations Description No Information Available Vital Signs Date Vital Result Comment 03/26/2018 10:16am Weight 185.00 lb Weight 83.916 kg Height 74 inches 6'2" Height in cm's 188.0 cm BMI (Body Mass Index) 23.8 kg/m2 02/19/2018 2:12pm Weight 192.00 lb Weight 87.091 kg Height 74 inches 6'2" Height in cm's 188.0 cm BMI (Body Mass Index) 24.6 kg/m2 Results Description No Information Available Procedures Date Code Description Status 02/19/2018 95600 Tympanometry Completed 02/19/2018 18957 Comprehensive Audiogram Completed 02/19/2018 36812 Fiberoptic Laryngoscopy Completed 09/19/2004 45995 Tympanometry Completed 09/19/2004 32175 Comprehensive Audiogram Completed 08/16/2004 43000 Tympanometry Completed 08/16/2004 55128 Comprehensive Audiogram Completed Encounters Type Date Location Provider Dx Diagnosis Office Visit 03/26/2018 [place] Karl Juan G43.101 Migraine with aura, 10:00a 07/02/07 Yuliana Rushing not intractable, with status migrainosus Office Visit 02/19/2018 [place],After Karl Juan G43.101 Migraine with aura, 1:30p 07/02/07 Yuliana Rushing not intractable, with status migrainosus R49.0 Dysphonia H91.93 Unspecified hearing loss, bilateral Office Visit 09/19/2004 [place],After Karl Adame4 Otitis Media, 4:00p 07/02/07 Yuliana Rushing Serous Not Specified as Acute Or Chronic 389.03 Hearing Loss, Conductive/Middle Ear Office Visit 08/16/2004 [place],After Karl Adame4 Otitis Media, 2:20p 07/02/07 Yuliana Rushing Serous Not Specified as Acute Or Chronic 389.03 Hearing Loss, Conductive/Middle Ear Office Visit 08/16/2004 [place],After Karl Adame4 Otitis Media, 2:15p 07/02/07 Yuliana Rushing Serous Not Specified as Acute Or Chronic 389.03 Hearing Loss, Conductive/Middle Ear Plan of Treatment 03/26/2018 - Karl Rushing M.D.G43.101 Migraine with aura, not intractable, with status migrainosusComments:The patient is doing better and has not had anymore headaches. He has a less stressful job. My recommendation is to keep the medication just in case the day comes that he feels a headache coming on. Heshould try it immediately.
[2018-03-27 15:57] VITALS: BP 126/71
--- NOTE | 2018-03-27 16:09 | UC ---
Throat Pain/Nasal Axel HPI - HPI Summary HPI Summary: 22 yo male presents with sinus pain/pressure/congestion for the last 2 weeks. Since that time he has developed fatigue for the last 4-5 days. Over the last 3 days has developed RLQ abdominal cramping and some nausea, but no vomiting. He tells me that he had this pain about a month ago and had a workup in the ER which was negative. His last BM was this morning and he reports that it was looser than normal, but still formed. He is eating and drinking as normal. Denies fever, chills, SOB, chest pain, dysuria. - History of Current Complaint Chief Complaint: UCHeadache Stated Complaint: HEADACHE Time Seen by Provider: 03/27/18 16:09 Hx Obtained From: Patient Onset/Duration: Gradual Onset Severity: Moderate Pain Intensity: 7 Pain Scale Used: 0-10 Numeric - Allergies/Home Medications Allergies/Adverse Reactions: Allergies Allergy/AdvReac Type Severity Reaction Status Date / Time No Known Allergies Allergy Verified 03/27/18 15:58 Home Medications: Home Medications Aspirin TAB* [Aspirin 325 MG TAB*] 2 tab PO PRN 03/27/18 [History] PMH/Surg Hx/FS Hx/Imm Hx Respiratory History: Asthma Other History Of: Negative For: Anticoagulant Therapy - Surgical History Surgical History: Yes Surgery Procedure, Year, and Place: Tubes in ears as a child - Family History Known Family History: Positive: Cardiac Disease, Hypertension, Other - [place], [place] Negative: Diabetes - Social History Occupation: Employed Full-time Lives: With Family Alcohol Use: Occasionally Substance Use Type: None Substance Use Comment - Amount & Last Used: occassionally, mushrooms Smoking Status (MU): Former Smoker Type: Cigarettes - Immunization History Most Recent Tetanus Shot: 2017 Hx Tetanus, Diphtheria Vaccination: Yes - 2015 Vaccination Up to Date: Yes Review of Systems Constitutional: Negative Skin: Negative ENT: Nasal Discharge, Sinus Congestion, Sinus Pain/Tenderness Respiratory: Negative Cardiovascular: Negative Gastrointestinal: Abdominal Pain, Nausea Genitourinary: Negative Neurovascular: Negative Neurological: Negative Psychological: Negative All Other Systems Reviewed And Are Negative: Yes Physical Exam - Summary Physical Exam Summary: GENERAL: NAD. WDWN. No pain distress. SKIN: No rashes, sores, lesions, or open wounds. HEENT: Head: AT/NC Eyes: EOM intact. Conjunctiva clear without inflammation or discharge. Ears: Hearing grossly normal. TMs intact, no bulging, erythema, or edema. Nose: Nasal mucosa moderately swollen and erythematous with clear discharge. TTP maxillary and frontal sinus. Throat: Posterior oropharynx without exudates, erythema, or tonsillar enlargement. Uvula midline. NECK: Supple. Nontender. No lymphadenopathy. CHEST: CTAB. No r/r/w. No accessory muscle use. Breathing comfortably and in no distress. CV: RRR. Without m/r/g. Pulses intact. ABDOMEN: RLQ mild TTP. Negative rovsings, psoas, obturator, and heel strike. Soft. No distention or guarding. No CVA tenderness. Bowel sounds present NEURO: Alert. PSYCH: Age appropriate behavior. Triage Information Reviewed: Yes Vital Signs: Initial Vital Signs Temp 98.3 F 03/27/18 15:52 Pulse 96 03/27/18 15:52 Resp 16 03/27/18 15:52 BP 126/71 03/27/18 15:52 Pulse Ox 100 03/27/18 15:52 Vital Signs Reviewed: Yes Throat Pain/Nasal Course/Dx - Course Course Of Treatment: UA negative. Suspect sinusitis. Low suspicion for appendicitis or acute abdomen at this time. I discussed with the pt transferring him to the ED for a further workup of his RLQ pain, but he did not want to do this and does not believe it is his appendix. Will draw for CBC and CMP and treat him for sinusitis. Advised to go to the ED if his symptoms worsen or persist. Pt agreeable to plan. - Differential Dx/Diagnosis Provider Diagnoses: Sinusitis. RLQ pain Discharge - Sign-Out/Discharge Documenting (check all that apply): Patient Departure All imaging exams completed and their final reports reviewed: No Studies - Discharge Plan Condition: Stable Disposition: HOME Prescriptions: Amoxicillin/Clavulanate TAB* [Augmentin TAB 875*] 875 mg PO BID #20 tab Patient Education Materials: Sinusitis (ED), Abdominal Pain (ED) Referrals: Fracnisco Vázquez MD [Primary Care Provider] - Additional Instructions: If you develop a fever, shortness of breath, chest pain, new or worsening symptoms - please call your PCP or go to the ED. 1) If your abdominal pain worsens or if you develop new symptoms - please go to the ER for further evaluation - Billing Disposition and Condition Condition: STABLE Disposition: Home
[2018-03-27 18:46] LABS: ABS Basophils 0 10^3/ul (0-0.2); ABS Eosinophils 0.1 10^3/ul (0-0.6); ABS Monocytes 0.4 10^3/ul (0-0.8); ABS Neutrophils 5.6 10^3/ul (1.5-7.7); ABS Nucleated RBC 0 10^3/ul; Eosinophil % 0.9 % (0-6); Hematocrit 41 % (42-52); Hemoglobin 14.4 g/dl (14.0-18.0); Lymphocyte % 24.3 % (25-47); Mean Corpuscular HGB Conc 35 g/dl (31-36); Mean Corpuscular Hemoglobin 30 pg (27-31); Mean Corpuscular Volume 87 fL (80-94); Mean Platelet Volume 8.8 um3 (7.4-10.4); Nucleated Red Blood Cells % 0.1; Platelet Count 183 10^3/ul (150-450); Red Blood Count 4.74 10^6/ul (4.00-5.40); Red Cell Distribution Width 12 % (10.5-15); White Blood Count 8.1 10^3/ul (3.5-10.8)
[2018-03-27 19:08] LABS: EGFR Non-African American 95.4 (>60)
--- NOTE | 2018-03-28 12:53 | UC ---
- Progress Note Progress Note: CBC wnl CMP wnl no change Ljj 03/28/18 Discharge - Sign-Out/Discharge Documenting (check all that apply): Post-Discharge Follow Up All imaging exams completed and their final reports reviewed: No Studies - Discharge Plan Condition: Stable Disposition: HOME Prescriptions: Amoxicillin/Clavulanate TAB* [Augmentin TAB 875*] 875 mg PO BID #20 tab Patient Education Materials: Sinusitis (ED), Abdominal Pain (ED) Referrals: Francisco Vázquez MD [Primary Care Provider] - Additional Instructions: If you develop a fever, shortness of breath, chest pain, new or worsening symptoms - please call your PCP or go to the ED. 1) If your abdominal pain worsens or if you develop new symptoms - please go to the ER for further evaluation - Billing Disposition and Condition Condition: STABLE Disposition: Home
== END 2018-03-27 16:57 | disposition home or self-care (01) ==
LOC: UCEAST 15:49
DX: J32.9 Chronic sinusitis, unspecified (principal); R10.31 Right lower quadrant pain; Z87.891 Personal history of nicotine dependence
CPT/HCPCS: 36415; 80053; 81003; 85025; 86703; 99212; G0463

== ENCOUNTER 2018-04-23 14:45 | Emergency (ER) | payer BC ==
[2018-04-23 15:51] VITALS: BP 106/74
--- NOTE | 2018-04-23 16:48 | UC ---
Throat Pain/Nasal Axel HPI - HPI Summary HPI Summary: 22-year-old male comes in today with a week and half of sinus pressure and sinus drainage. The rhinorrhea is yellow and green. He had a fever yesterday. Is not a smoker. No wheezing. He does have a history of asthma. Over-the- counter medications help some but he is getting worse. - History of Current Complaint Chief Complaint: UCGeneralIllness Stated Complaint: SINUS PAIN,CONGESTION Time Seen by Provider: 04/23/18 16:34 Pain Intensity: 4 - Allergies/Home Medications Allergies/Adverse Reactions: Allergies Allergy/AdvReac Type Severity Reaction Status Date / Time No Known Allergies Allergy Verified 04/23/18 15:52 Home Medications: Home Medications Ibuprofen TAB* 800 mg PO Q6H PRN 04/23/18 [History Confirmed 04/23/18] PMH/Surg Hx/FS Hx/Imm Hx Respiratory History: Asthma Other History Of: Negative For: Anticoagulant Therapy - Surgical History Surgical History: Yes Surgery Procedure, Year, and Place: Tubes in ears as a child - Family History Known Family History: Positive: Cardiac Disease, Hypertension, Other - [place], [place] Negative: Diabetes - Social History Alcohol Use: Weekly Substance Use Type: Marijuana Substance Use Comment - Amount & Last Used: occassionally, mushrooms Smoking Status (MU): Former Smoker Type: Cigarettes - Immunization History Most Recent Tetanus Shot: 2017 Hx Tetanus, Diphtheria Vaccination: Yes - 2015 Vaccination Up to Date: Yes Review of Systems Constitutional: Fever Skin: Negative Eyes: Negative ENT: Sore Throat, Nasal Discharge, Sinus Congestion, Sinus Pain/Tenderness Respiratory: Negative Cardiovascular: Negative Gastrointestinal: Negative Motor: Negative Neurovascular: Negative Musculoskeletal: Negative Neurological: Negative Psychological: Negative Is Patient Immunocompromised?: No All Other Systems Reviewed And Are Negative: Yes Physical Exam Triage Information Reviewed: Yes Appearance: Well-Appearing, No Pain Distress, Well-Nourished Vital Signs: Initial Vital Signs Temp 98.3 F 04/23/18 15:47 Pulse 93 04/23/18 15:47 Resp 16 04/23/18 15:47 BP 106/74 04/23/18 15:47 Pulse Ox 100 04/23/18 15:47 Vital Signs Reviewed: Yes Eye Exam: Normal ENT: Positive: Pharyngeal erythema, Nasal congestion, Nasal drainage, TMs normal Neck exam: Normal Neck: Positive: Supple Respiratory: Positive: Lungs clear, Normal breath sounds, No respiratory distress Cardiovascular Exam: Normal Cardiovascular: Positive: RRR Musculoskeletal Exam: Normal Musculoskeletal: Positive: Strength Intact, ROM Intact Neurological Exam: Normal Neurological: Positive: Alert, Muscle Tone Normal Psychological Exam: Normal Psychological: Positive: Age Appropriate Behavior Skin Exam: Normal Throat Pain/Nasal Course/Dx - Course Course Of Treatment: Patient reports that about a month ago he was on Augmentin for this same condition dish and and now the condition is back. He reports that doxycycline is helped in the past. - Differential Dx/Diagnosis Provider Diagnoses: SINUSITIS Discharge - Sign-Out/Discharge Documenting (check all that apply): Patient Departure All imaging exams completed and their final reports reviewed: No Studies - Discharge Plan Condition: Stable Disposition: HOME Prescriptions: DOXYcycline CAP(*) [DOXYcycline 100MG CAP(*)] 100 mg PO BID #20 cap Patient Education Materials: Sinusitis (ED) Referrals: Francisco Vázquez MD [Primary Care Provider] - Additional Instructions: FOLLOW UP WITH YOUR DOCTOR. GET RECHECKED FOR ANY WORSENING OF YOUR CONDITION OR QUESTIONS OR CONCERNS. - Billing Disposition and Condition Condition: STABLE Disposition: Home
== END 2018-04-23 16:54 | disposition home or self-care (01) ==
LOC: UCEAST 14:45
DX: J32.9 Chronic sinusitis, unspecified (principal); J45.909 Unspecified asthma, uncomplicated; Z87.891 Personal history of nicotine dependence
CPT/HCPCS: 99212; G0463

== ENCOUNTER 2018-05-08 17:31 | Emergency (ER) | payer BC ==
[2018-05-08 18:59] VITALS: BP 107/70
--- NOTE | 2018-05-08 19:30 | UC ---
Respiratory Complaint HPI - HPI Summary HPI Summary: The patient is a 22-year-old male with a 3 week history of progressively worsening sinus pressure and pain. His nasal congestion and postnasal drip. He is having a hard time breathing through his nose. His symptoms have worsened despite taking a weeks worth of doxycycline. He has a history of asthma and has been using his rescue inhaler. Denies any chest pain or shortness of breath. - History of Current Complaint Chief Complaint: UCGeneralIllness Stated Complaint: SINUS CONGESTION Time Seen by Provider: 05/08/18 19:18 Hx Obtained From: Patient Onset/Duration: Gradual Onset, Lasting Weeks Timing: Constant Severity Initially: Mild Severity Currently: Moderate Pain Intensity: 0 Pain Scale Used: 0-10 Numeric Character: Cough: Nonproductive Aggravating Factors: Nothing Associated Signs And Symptoms: Positive: Nasal Congestion, Hoarseness, Sinus Discomfort - Allergies/Home Medications Allergies/Adverse Reactions: Allergies Allergy/AdvReac Type Severity Reaction Status Date / Time No Known Allergies Allergy Verified 05/08/18 18:50 Home Medications: Home Medications Acetaminophen [Acetaminophen Extra Strength] 500 mg PO ONCE 05/08/18 [History Confirmed 05/08/18] PMH/Surg Hx/FS Hx/Imm Hx Previously Healthy: Yes Respiratory History: Asthma Other History Of: Negative For: Anticoagulant Therapy - Surgical History Surgical History: Yes Surgery Procedure, Year, and Place: Tubes in ears as a child, mole removal on back 2017 - Family History Known Family History: Positive: Cardiac Disease, Hypertension, Other - [place], [place] Negative: Diabetes - Social History Alcohol Use: Occasionally Substance Use Type: Marijuana Substance Use Comment - Amount & Last Used: occassionally Smoking Status (MU): Former Smoker Type: Cigarettes Length of Time of Smoking/Using Tobacco: 4 years - Immunization History Most Recent Tetanus Shot: 2018 Hx Tetanus, Diphtheria Vaccination: Yes - 2015 Vaccination Up to Date: Yes Review of Systems Constitutional: Fatigue Skin: Negative Eyes: Negative ENT: Nasal Discharge, Sinus Congestion, Sinus Pain/Tenderness Respiratory: Cough Cardiovascular: Negative Gastrointestinal: Negative Genitourinary: Negative Motor: Negative Neurovascular: Negative Musculoskeletal: Negative Neurological: Negative Psychological: Negative All Other Systems Reviewed And Are Negative: Yes Physical Exam Triage Information Reviewed: Yes Appearance: Well-Appearing, No Pain Distress, Well-Nourished Vital Signs: Initial Vital Signs Temp 98.5 F 05/08/18 18:51 Pulse 83 11/07/18 18:51 Resp 16 05/08/18 18:51 BP 107/70 05/08/18 18:51 Pulse Ox 99 05/08/18 18:51 Vital Signs Reviewed: Yes Eyes: Positive: Conjunctiva Clear ENT: Positive: Hearing grossly normal, Sinus tenderness. Negative: Nasal congestion, Nasal drainage, Tonsillar swelling, Tonsillar exudate, Trismus, Muffled voice, Hoarse voice Neck: Positive: Supple, Nontender, No Lymphadenopathy Respiratory: Positive: No respiratory distress, No accessory muscle use, Wheezing - with forced expiration Cardiovascular: Positive: RRR Abdomen Description: Positive: Nontender. Negative: CVA Tenderness (R), CVA Tenderness (L), Distended, Guarding, Hernia @ Musculoskeletal: Positive: ROM Intact, No Edema Neurological: Positive: Alert Psychological Exam: Normal Skin Exam: Normal UC Diagnostic Evaluation - Laboratory O2 Sat by Pulse Oximetry: 99 - normal/not hypoxic Respiratory Course/Dx - Differential Dx/Diagnosis Provider Diagnoses: acute sinusitis. bronchospasm Discharge - Sign-Out/Discharge Documenting (check all that apply): Patient Departure All imaging exams completed and their final reports reviewed: Yes - Discharge Plan Condition: Stable Disposition: HOME Prescriptions: Amoxicillin/Clavulanate TAB* [Augmentin TAB 875*] 875 mg PO BID #14 tab Fluticasone NASAL SPRAY 50MCG* [Flonase NASAL SPRAY 50MCG*] 2 spray BOTH NARES BID #1 btl predniSONE [Deltasone 20 MG TAB] 40 mg PO DAILY #10 tab Patient Education Materials: Sinusitis (ED) Forms: *Work Release Referrals: Francisco Vázquez MD [Primary Care Provider] - 7 Days (if not better) Additional Instructions: use your inhaler as directed for wheezing saline nasal spray ..2 sprays each nostril twice daily use flonase about 5 minutes after the saline spray - Billing Disposition and Condition Condition: STABLE Disposition: Home
--- NOTE | 2018-05-09 14:12 | UC ---
- Progress Note Progress Note: There was no x-ray ordered on May 08, 2018. There is no discrepancy Discharge - Sign-Out/Discharge Documenting (check all that apply): Patient Departure All imaging exams completed and their final reports reviewed: No Studies - Discharge Plan Condition: Stable Disposition: HOME Prescriptions: Amoxicillin/Clavulanate TAB* [Augmentin TAB 875*] 875 mg PO BID #14 tab Fluticasone NASAL SPRAY 50MCG* [Flonase NASAL SPRAY 50MCG*] 2 spray BOTH NARES BID #1 btl predniSONE [Deltasone 20 MG TAB] 40 mg PO DAILY #10 tab Patient Education Materials: Sinusitis (ED) Forms: *Work Release Referrals: Francisco Vázquez MD [Primary Care Provider] - 7 Days (if not better) Additional Instructions: use your inhaler as directed for wheezing saline nasal spray ..2 sprays each nostril twice daily use flonase about 5 minutes after the saline spray - Billing Disposition and Condition Condition: STABLE Disposition: Home
== END 2018-05-08 19:40 | disposition home or self-care (01) ==
LOC: UCEAST 17:31
DX: J01.90 Acute sinusitis, unspecified (principal); J98.01 Acute bronchospasm; Z87.891 Personal history of nicotine dependence
CPT/HCPCS: 99212; G0463

== ENCOUNTER 2018-06-30 17:27 | Emergency (ER) | payer BC ==
[2018-06-30 19:13] VITALS: BP 123/60
== END 2018-06-30 19:59 | disposition left against medical advice (07) ==
LOC: ED 17:27
DX: R10.9 Unspecified abdominal pain (principal); Z53.21 Procedure and treatment not carried out due to patient leaving prior to being seen by health care provider
CPT/HCPCS: 99281

== ENCOUNTER 2018-07-12 12:20 | Emergency (ER) | payer BC ==
--- NOTE | 2018-07-12 12:40 | ED ---
Abdominal Pain/Male - HPI Summary HPI Summary: This patient is a 22 year old M presenting to [facility] with a chief complaint of dull RLQ abdominal pain since 10 days ago. The patient rates the pain 4/10 in severity. The pain is worse when doing physical activity.Patient reports diarrhea, bloody stool, nausea, decreased appetite, congestion, and pressure BROWN in the front of the head. Patient denies vomiting or constipation.The patient went to [place] last week for a sinus infection and they gave him Doxycycline. He was not tested for the flu at [place]. He believes that his cold symptoms have gotten worse, specifically the BROWN and congestion, and these symptoms have been present for over 3 weeks. The patient states that there is a significant amount of blood when he wipes but the toilet water is not full of blood. The patient states that he is stressed out at work. He has traveled recently to [place] for the holidays. Vitals in the room: HR 88 bpm, BP 119/84. - History of Current Complaint Chief Complaint: EDAbdPain Stated Complaint: ABD PAIN Time Seen by Provider: 07/12/18 12:34 Hx Obtained From: Patient Onset/Duration: Gradual Onset, Lasting Weeks - 2 Timing: Constant Severity Initially: Mild Severity Currently: Moderate Pain Intensity: 4 Pain Scale Used: 0-10 Numeric Location: Discrete At: RLQ Character: Dull Aggravating Factor(s): Movement Associated Signs And Symptoms: Positive: Blood in Stool, Urinary Symptoms - dark urine, Decreased Appetite, Nausea, Diarrhea. Negative: Vomiting - Allergies/Home Medications Allergies/Adverse Reactions: Allergies Allergy/AdvReac Type Severity Reaction Status Date / Time prednisone AdvReac See Comment Verified 06/30/18 17:40 Home Medications: Home Medications DOXYcycline CAP(*) [DOXYcycline 100MG CAP(*)] 100 mg PO BID 07/12/18 [History Confirmed 07/12/18] PMH/Surg Hx/FS Hx/Imm Hx Endocrine/Hematology History: Denies: Hx Anticoagulant Therapy, Hx Diabetes, Hx Thyroid Disease Cardiovascular History: Denies: Hx Hypertension Respiratory History: Reports: Hx Asthma, Other Respiratory Problems/Disorders - PNA, HEAVY SMOKER FOR LAST 3 YEARS, REACTIVE AIRWAY DISEASE Denies: Hx Chronic Obstructive Pulmonary Disease (COPD) GI History: Reports: Other GI Disorders Denies: Hx Ulcer History: Denies: Hx Kidney Stones Sensory History: Denies: Hx Legally Blind Opthamlomology History: Denies: Hx Legally Blind - Surgical History Surgery Procedure, Year, and Place: Tubes in ears as a child, mole removal on back 2017 - Immunization History Date of Tetanus Vaccine: 08/2017 Infectious Disease History: No Infectious Disease History: Denies: Hx Clostridium Difficile, Hx Hepatitis, Hx Human Immunodeficiency Virus (HIV), Hx of Known/Suspected MRSA, Hx Shingles, Hx Tuberculosis, Hx Known/ Suspected VRE, Hx Known/Suspected VRSA, History Other Infectious Disease, Traveled Outside the [place] in Last 30 Days - Family History Known Family History: Positive: Cardiac Disease, Hypertension, Other - [place], [place] Negative: Diabetes - Social History Alcohol Use: Weekly Hx Substance Use: Yes Substance Use Type: Reports: Marijuana Substance Use Comment - Amount & Last Used: occassionally Hx Tobacco Use: Yes - not currently Smoking Status (MU): Former Smoker Type: Cigarettes Length of Time of Smoking/Using Tobacco: 4 years Review of Systems Positive: Nasal Discharge Positive: Other Positive: Abdominal Pain - RLQ, Diarrhea, Nausea, Other - blood in stool. Negative: Vomiting Positive: other - dark urine Positive: Headache - front of head All Other Systems Reviewed And Are Negative: Yes Physical Exam - Summary Physical Exam Summary: Appearance: The patient is well-nourished in no acute distress and in no acute pain. Skin: The skin is warm and dry and skin color reflects adequate perfusion. HEENT: The head is normocephalic and atraumatic. The pupils are equal and reactive. The conjunctivae are clear and without drainage. Nares are patent and without drainage. Mouth reveals moist mucous membranes and the throat is without erythema and exudate. The external ears are intact. The ear canals are patent and without drainage. The tympanic membranes are intact. Neck: The neck is supple with full range of motion and non-tender. There are no carotid bruits. There is no neck vein distension. Respiratory: Chest is non-tender. Lungs are clear to auscultation and breath sounds are symmetrical and equal. Cardiovascular: Heart is regular rate and rhythm. There is no murmur or rub auscultated. There is no peripheral edema and pulses are symmetrical and equal. Abdomen: The abdomen is soft. There is tenderness in the RLQ. There are normal bowel sounds heard in all four quadrants and there is no organomegaly palpated. Musculoskeletal: There is no back tenderness noted. Extremities are non-tender with full range of motion. There is good capillary refill. There is no peripheral edema or calf tenderness elicited. Neurological: Patient is alert and oriented to person, place and time. The patient has symmetrical motor strength in all four extremities. Cranial nerves are grossly intact. Deep tendon reflexes are symmetrical and equal in all four extremities. Psychiatric: The patient has an appropriate affect and does not exhibit any anxiety or depression. Triage Information Reviewed: Yes Vital Signs On Initial Exam: Initial Vitals Temp Pulse Resp BP Pulse Ox 97.6 F 75 16 134/70 100 07/12/18 12:25 07/12/18 12:25 07/12/18 12:25 07/12/18 12:25 07/12/18 12:25 Vital Signs Reviewed: Yes Diagnostics - Vital Signs Vital Signs Temp Pulse Resp BP Pulse Ox 07/12/18 12:25 97.6 F 75 16 134/70 100 - Laboratory Result Diagrams: 07/12/18 12:43 07/12/18 12:43 Lab Statement: Any lab studies that have been ordered have been reviewed, and results considered in the medical decision making process. - Ultrasound No standard instances Ultrasound Interpretation Completed By: Radiologist Summary of Ultrasound Findings: Appendix US: Appendix not visualized. ED physician has reviewed this report Abdominal Pain Fem Course/Dx - Course Course Of Treatment: Mr. Delaney presented with multiple complaints. Most salient was that he has right sided abdominal pain that sharp and has been there about a week. He has noticed blood in on the toilet paper and his appetite has been decreased somewhat. He is currently on doxycycline for presumed sinus infection. He says it hasn't helped. On presentation his vitals are stable and he is nontoxic in appearance. He had mild right lower quadrant tenderness and unremarkable rectal exam. Labs and ultrasound were obtained and were unremarkable. His urinalysis is still pending at the time of discharge. But he feels fine and his workup is normal. I don't think anything emergent is happening I would prefer we wait for urinalysis but I will discharge him to follow-up with PCP. - Diagnoses Provider Diagnoses: Abdominal pain Discharge - Sign-Out/Discharge Documenting (check all that apply): Patient Departure - discharge - Discharge Plan Condition: Stable Disposition: HOME Patient Education Materials: Abdominal Pain (ED) Referrals: Francisco Vázquez MD [Primary Care Provider] - 3 Days Additional Instructions: Follow up with your primary care doctor within 3 days. RETURN TO THE EMERGENCY DEPARTMENT FOR NEW OR WORSENING SYMPTOMS. - Billing Disposition and Condition Condition: STABLE Disposition: Home - Attestation Statements Document Initiated by Jagdishibe: Yes Documenting Scribe: Milad Farnsworth Provider For Whom Scribe is Documenting (Include Credential): Mateusz Ryan MD Scribe Attestation: IMilad, scribed for Mateusz Ryan MD on 07/12/18 at 1706. Scribe Documentation Reviewed: Yes Provider Attestation: The documentation as recorded by the Milad dillard accurately reflects the service I personally performed and the decisions made by me, Mateusz Ryan MD Status of Scribe Document: Viewed
[2018-07-12 12:50] LABS: ABS Basophils 0 10^3/ul (0-0.2); ABS Eosinophils 0.1 10^3/ul (0-0.6); ABS Lymphocytes 1.1 10^3/ul (1.0-4.8); ABS Monocytes 0.4 10^3/ul (0-0.8); ABS Neutrophils 3.8 10^3/ul (1.5-7.7); ABS Nucleated RBC 0 10^3/ul; Eosinophil % 1.4 %; Hematocrit 42 % (42-52); Hemoglobin 14.4 g/dl (14.0-18.0); Lymphocyte % 20.5 %; Mean Corpuscular HGB Conc 34 g/dl (31-36); Mean Corpuscular Hemoglobin 30 pg (27-31); Mean Corpuscular Volume 88 fL (80-94); Mean Platelet Volume 8.4 fL (7.4-10.4); Nucleated Red Blood Cells % 0.1; Platelet Count 158 10^3/ul (150-450); Red Blood Count 4.75 10^6/ul (4.00-5.40); Red Cell Distribution Width 13 % (10.5-15); White Blood Count 5.4 10^3/ul (3.5-10.8)
[2018-07-12 13:12] LABS: ALT 15 U/L (7-52); AST 17 U/L (13-39); Albumin 4.9 g/dL (3.2-5.2); Albumin/Globulin Ratio 3.1 (1-3); Alkaline Phosphatase 43 U/L (34-104); Anion Gap 5 mmol/L (2-11); BUN/Creatinine Ratio 13.1 (8-20); Blood Urea Nitrogen 13 mg/dL (6-24); C Reactive Protein < 1.00 mg/L (<8.01); CO2 Carbon Dioxide 30 mmol/L (22-32); Calcium 9.5 mg/dL (8.6-10.3); Chloride 105 mmol/L (101-111); EGFR African American 115.5 (>60); EGFR Non-African American 95.4 (>60); Globulin 1.6 g/dL (2-4); Glucose 90 mg/dL (70-100); Potassium 4.1 mmol/L (3.5-5.0); Sodium 140 mmol/L (135-145); Total Protein 6.5 g/dL (6.4-8.9)
[2018-07-12 15:29] VITALS: BP 119/84
== END 2018-07-12 15:33 | disposition home or self-care (01) ==
LOC: ED 12:20
DX: R10.31 Right lower quadrant pain (principal); R11.0 Nausea; R19.7 Diarrhea, unspecified; R82.90 Unspecified abnormal findings in urine; R51 Headache; Z88.8 Allergy status to other drugs, medicaments and biological substances
CPT/HCPCS: 36415; 76705; 80053; 83605; 83690; 85025; 86140; 99282

== ENCOUNTER 2018-07-21 16:30 | Emergency (ER) | payer BC ==
[2018-07-21 16:39] VITALS: BP 133/89
--- NOTE | 2018-07-21 16:51 | UC ---
Throat Pain/Nasal Axel HPI - HPI Summary HPI Summary: 22 y/o male presents to the urgent care c/o nasal congestion w/ clear nasal discharge, sinus pain, general fatigue. B/L ear pressure at times LF ear>Rt ear for the past 2 weeks. Pt reports he has Hx of Asthma and denies wheezing or SOB lately. He also states Hx of recurrent sinusitis in the past year. He has been on multiple antibiotics and it seems no to improve completely. He was referred to ENT Dr Rushing who Rx antibiotics. About 3 weeks ago he was Rx Doxycycline PO at [place] for sinusitis and symptoms improved only for 2 days. He is concern on his sugar. He request a FSG. Pt denies fever, urianry symptoms , cough, chest pain, SOB, abdominal pain, N/V/D. rash, neck pain. Pt is UTD w/ all vaccines for his age. - History of Current Complaint Chief Complaint: UCGeneralIllness Stated Complaint: SINUS COMPLAINT Time Seen by Provider: 07/21/18 16:41 Hx Obtained From: Patient Onset/Duration: Gradual Onset, Lasting Weeks - 3 weeks, Still Present, Worse Since - 1 week Severity: Mild Pain Intensity: 3 Pain Scale Used: 0-10 Numeric Cough: Nonproductive Associated Signs & Symptoms: Positive: Sinus Discomfort, Nasal Discharge - clear. Negative: Dysphagia, Wheezing, Fever Related History: Seasonal Allergies - Epiglottits Risk Factors Epiglottis Risk Factors: Negative - Allergies/Home Medications Allergies/Adverse Reactions: Allergies Allergy/AdvReac Type Severity Reaction Status Date / Time prednisone AdvReac See Comment Verified 07/21/18 16:39 PMH/Surg Hx/FS Hx/Imm Hx Previously Healthy: Yes Other Respiratory History: recurrent sinusitis Other History Of: Negative For: Anticoagulant Therapy - Surgical History Surgical History: Yes Surgery Procedure, Year, and Place: [place] teeth '16,. Tubes in ears as a child. mole removal on back 2018 - Family History Known Family History: Positive: Cardiac Disease, Hypertension, Other - [place], [place] Negative: Diabetes - Social History Occupation: Student Lives: With Family Alcohol Use: Weekly Alcohol Amount: 3-5 Substance Use Type: Marijuana Substance Use Comment - Amount & Last Used: occassionally Smoking Status (MU): Former Smoker Type: Cigarettes Length of Time of Smoking/Using Tobacco: 4 years - Immunization History Most Recent Tetanus Shot: 2018 Hx Tetanus, Diphtheria Vaccination: Yes - 2015 Vaccination Up to Date: Yes Review of Systems All Other Systems Reviewed And Are Negative: Yes Constitutional: Positive: Negative Skin: Positive: Negative Eyes: Positive: Negative ENT: Positive: Negative, Ear Ache - b/L ear pressure, Left ear pain, Nasal Discharge - clear, Sinus Congestion, Sinus Pain/Tenderness, Other - PND Respiratory: Positive: Negative Cardiovascular: Positive: Negative Gastrointestinal: Positive: Negative Genitourinary: Positive: Negative Motor: Positive: Negative Neurovascular: Positive: Negative Musculoskeletal: Positive: Negative Neurological: Positive: Negative Psychological: Positive: Negative Is Patient Immunocompromised?: No Physical Exam - Summary Physical Exam Summary: Vitals: reviewed General: Well developed, well-nourished male patient with NAD. Head and face: Normocephalic and atraumatic, Positive tenderness over the frontal and maxillary sinuses.. Eyes: PERRLA, EOMI x 2. Normal conjunctiva. No eye discharge. ENT: Ears and TM with normal limits. Nose: edematous and erythematous nasal mucosa with with clear discharge and erythematous mucosa. Pharynx with erythema, no exudate. clear PND Neck: Supple, no JVD, no carotid bruits and no lymphadenopathy. Lungs: clear, no rales, no rhonchi, no wheezes. CVS: RRR, S1 and S2 present no murmurs or gallops appreciated. Abdomen: soft nontender with positive bowel sounds. Extremities: no edema noted. Neuro: WNL. Skin: warm and dry Triage Information Reviewed: Yes Vital Signs: Initial Vital Signs Temp 98.7 F 07/21/18 16:33 Pulse 96 07/21/18 16:33 Resp 16 07/21/18 16:33 BP 133/89 07/21/18 16:33 Pulse Ox 100 07/21/18 16:33 Throat Pain/Nasal Course/Dx - Course Course Of Treatment: 22 y/o male presents to the urgent care c/o nasal congestion w/ clear nasal discharge, sinus pain, general fatigue. B/L ear pressure at times LF ear>Rt ear for the past 2 weeks. Pt reports he has Hx of Asthma and denies wheezing or SOB lately. He also states Hx of recurrent sinusitis in the past year. He has been on multiple antibiotics and it seems no to improve completely. He was referred to ENT Dr Rushing who Rx antibiotics. About 3 weeks ago he was Rx Doxycycline PO at [place] for sinusitis and symptoms improved only for 2 days. He is concern on his sugar. He request a FSG. Pt denies fever, urianry symptoms, cough, chest pain, SOB, abdominal pain, N/V/D. rash, neck pain, dizziness. Pt is UTD w/ all vaccines for his age. Hx obtained. Pt with probably allergic sinusitis on examination. FSmg/dl. Pt Rx Loratadine PO, and Flonase nasal spray, increase fluid intake, rest and eat well. Given referrral with DR Rushing his ENT for further management. Pt explained D/C instructions. Pt understood and agreed with plan of care. - Differential Dx/Diagnosis Differential Diagnosis/HQI/PQRI: Influenza, Laryngitis, Otitis Media, Pharyngitis, Sinusitis, Tonsillitis, URI Provider Diagnosis: Acute rhinosinusitis Discharge - Sign-Out/Discharge Documenting (check all that apply): Patient Departure - d/c home All imaging exams completed and their final reports reviewed: No Studies - Discharge Plan Condition: Stable Disposition: HOME Prescriptions: Fluticasone NASAL SPRAY 50MCG* [Flonase NASAL SPRAY 50MCG*] 2 spray BOTH NARES DAILY #1 btl Loratadine/Pseudoephedrine [Loratadine-D 12Hr] 1 tab PO BID #20 tab Patient Education Materials: Rhinosinusitis (ED) Referrals: Francisco Vázquez MD [Primary Care Provider] - 3 Days Karl Rushing MD [Medical Doctor] - 3 Days Additional Instructions: 1- Please increase fluid intake and rest. take full course of antibiotic to avoid resistance 2-Use Flonase as directed to help drain fluid. Also buy saline drops to clear sinuses 3-Take Loratadine PO to alleviates sinus congestion 4-Return to the clinic or PCP 3 days if symptoms do not improve for further management and treatment - Billing Disposition and Condition Condition: STABLE Disposition: Home - Attestation Statements Provider Attestation: I was available for consult. This patient was seen by the SHRUTHI. The patient was not presented to , seen by or examined by -Rosemary Omalley MD
== END 2018-07-21 17:35 | disposition home or self-care (01) ==
LOC: UCEAST 16:30
DX: J01.90 Acute sinusitis, unspecified (principal); Z88.8 Allergy status to other drugs, medicaments and biological substances; Z87.891 Personal history of nicotine dependence
CPT/HCPCS: 99212; G0463

== ENCOUNTER 2018-09-19 12:58 | Emergency (ER) | payer BC ==
[2018-09-19 13:11] VITALS: BP 152/78
--- NOTE | 2018-09-19 13:17 | UC ---
FLU HPI - HPI Summary HPI Summary: 22 y/o male presents to the urgent care c/o sinus congestion w/ yellowish nasal discharge, BROWN, B/L ear pressure for the past week. Symptoms worsen yesterday when he developed sore throat, fever, sore throat and wheezing. Pt w/ PMHX of asthma. Pain is 4/10. He took tylenol PO today to alleviate symptoms. Pt is UTD w/ all vaccines ofr his age. He has decrease appetite, but is drinking fluid. Pt denies SOB, chest pain, abdominal pain N/V/d. - History of Current Complaint Chief Complaint: UCRespiratory Stated Complaint: FLU-LIKE SYM Time Seen by Provider: 09/19/18 13:15 Hx Obtained From: Patient Onset/Duration: Gradual Onset, Lasting Days - 1 day Severity Currently: Mild Severity Initially: Moderate Pain Intensity: 4 - sinus pain and BROWN Pain Scale Used: 0-10 Numeric Associated Signs & Symptoms: Positive: Fever, Myalgia, Cough - productive cough , Nasal Congestion - yellowish, Headache - Risk Factors Influenza Risk Factors: Negative - Allergy/Home Medications Allergies/Adverse Reactions: Allergies Allergy/AdvReac Type Severity Reaction Status Date / Time prednisone AdvReac See Comment Verified 07/21/18 16:39 Home Medications: Home Medications Acetaminophen TAB* [Tylenol TAB*] 1,000 mg PO Q4H PRN 09/19/18 [History Confirmed 09/19/18] Ibuprofen TAB* [Advil TAB*] 200 mg PO Q6H PRN 09/19/18 [History Confirmed ] PMH/Surg Hx/FS Hx/Imm Hx Previously Healthy: Yes Respiratory History: Asthma Other History Of: Negative For: Anticoagulant Therapy - Surgical History Surgical History: Yes Surgery Procedure, Year, and Place: [place] teeth '16,. Tubes in ears as a child. mole removal on back 2018 - Family History Known Family History: Positive: Cardiac Disease, Hypertension, Other - [place], [place] Negative: Diabetes - Social History Occupation: Student Lives: With Family Alcohol Use: Weekly Alcohol Amount: 3-5 Substance Use Type: None Substance Use Comment - Amount & Last Used: occassionally Smoking Status (MU): Former Smoker Type: Cigarettes Length of Time of Smoking/Using Tobacco: 4 years - Immunization History Most Recent Tetanus Shot: 2018 Hx Tetanus, Diphtheria Vaccination: Yes - 2015 Vaccination Up to Date: Yes Review of Systems All Other Systems Reviewed And Are Negative: Yes Constitutional: Positive: Fever, Chills, Other - body aches Skin: Positive: Negative Eyes: Positive: Negative ENT: Positive: Nasal Discharge - yellowish, Sinus Congestion, Sinus Pain/ Tenderness Respiratory: Positive: Cough - productive, Other - mild wheezing Cardiovascular: Positive: Negative Gastrointestinal: Positive: Negative Genitourinary: Positive: Negative Motor: Positive: Negative Neurovascular: Positive: Negative Musculoskeletal: Positive: Myalgia Neurological: Positive: Headache Psychological: Positive: Negative Is Patient Immunocompromised?: No Physical Exam - Summary Physical Exam Summary: Vital Signs Reviewed: Yes General: well developed, well nourished male adolescent sitting in the examining table w/o any apparent distress Eyes: Positive: Conjunctiva Clear - PERRLA, EOMI, fundi grossly normal ENT: Positive: Normal ENT inspection, Hearing grossly normal, Pharynx normal, Nasal congestion - edematous and erythematous nasal mucosa, Nasal drainage - yellowish drainage, TMs normal. Negative: Tonsillar swelling, Tonsillar exudate. Positive tenderness over the frontal and maxillary sinuses.. Neck: Positive: Supple, Nontender, No Lymphadenopathy Respiratory: no orthopnea or dyspnea. Able to speak in full sentences, no retractions or accessory muscle use, no tripod position, stridor, or head bobbing. Positive breath sounds bilaterally. B/L posterior upper lungs w/ mild scattered wheezing, and mild rhonchi, no crackles or rales. Cardiovascular: Positive: RRR, No Murmur, Pulses Normal, Brisk Capillary Refill Abdomen Description: Positive: Nontender, No Organomegaly, Soft. Negative: CVA Tenderness (R), CVA Tenderness (L) Bowel Sounds: Positive: Present Musculoskeletal Exam: Normal Musculoskeletal: Positive: Strength Intact, ROM Intact, No Edema Neurological Exam: Normal Psychological Exam: Normal Skin Exam: Normal Triage Information Reviewed: Yes Vital Signs: Initial Vital Signs Temp 98.5 F 09/19/18 13:05 Pulse 97 09/19/18 13:05 Resp 16 09/19/18 13:05 BP 152/78 09/19/18 13:05 Pulse Ox 99 09/19/18 13:05 Flu Course/Dx - Course Course Of Treatment: 22 y/o male presents to the urgent care c/o sinus congestion w/ yellowish nasal discharge, BROWN, B/L ear pressure for the past week. Symptoms worsen yesterday when he developed sore throat, fever, sore throat and wheezing. Pt w/ PMHX of asthma. . Pain is 4/10. He took tylenol PO today to alleviate symptoms. Pt is UTD w/ all vaccines ofr his age. He has decrease appetite, but is drinking fluid. Pt denies SOB, chest pain, abdominal pain N/V/d.Hx obtained Pt w/ B/L posterior upper lungs w/ mild scattered wheezing, and mild rhonchi on examination, O2SAt:99%. Pt w/ mild asthma exacerbation due to bacterial sinusitis. Pt given Duoneb Treatment to alleviate symptoms. Pt tolerated well treatment and lungs improved,and wheezing resolved. Patient prescribed Amoxicillin, as directed below. Advised to continue using his inhaler and flonase nasal spray to alleviate symptoms. The patient was recommended to increase fluid intake. Take medications as recommended. Pt advised to returned to the clinic or f/u w/ her PCP if symptoms do not improve. Pt's BP is elevated today advised to decrease salt in diet, monitor BP and f/u with PCP for further management. All D/C instructions explained. Patient understood and agree w/ plan of care. Pt left clinic hemodynamically stable , A&OX3 - Differential Dx/Diagnosis Differential Diagnosis/HQI/PQRI: Bronchitis, Influenza, Pneumonia, Upper Respiratory Infection, Other - asthma exacerbation Provider Diagnosis: Asthma exacerbation, Acute bacterial sinusitis, Elevated BP without diagnosis of hypertension Discharge - Sign-Out/Discharge Documenting (check all that apply): Patient Departure - D/C home All imaging exams completed and their final reports reviewed: Yes - Discharge Plan Condition: Stable Disposition: HOME Prescriptions: Amoxicillin PO (*) [Amoxicillin 875 MG (*)] 875 mg PO BID #20 tab Patient Education Materials: Sinusitis (ED), Wheezing (ED) Referrals: Francisco Vázquez MD [Primary Care Provider] - 3 Days Additional Instructions: 1- Please increase fluid intake and rest. take full course of antibiotic to avoid resistance 2 Use saline drops to clear sinuses 3-Take Ibuprofen PO q6-8hrs after meals to alleviate sinus pain and headache. 4-Please f/u w/ your PCP in 3 days if symptoms do not improve for further management and treatment on your asthma 5-Your BP is elevated today. please decrease salt in your diet, monitor BP and if it continues to be elevated please f/u with your PCP for further management. - Billing Disposition and Condition Condition: STABLE Disposition: Home
[2018-09-19 13:32] LABS: Influenza A Molecular NEGATIVE (Negative); Influenza B Molecular NEGATIVE (Negative)
[2018-09-19] MEDS ORDERED: Albuterol/Ipratropium NEB.SOL* Albuterol 2.5 MG/Ipratropium 0.5 MG 3 ML INH ONE (13:45)
== END 2018-09-19 14:30 | disposition home or self-care (01) ==
LOC: UCEAST 12:58
DX: J45.901 Unspecified asthma with (acute) exacerbation (principal); J01.80 Other acute sinusitis; B96.89 Other specified bacterial agents as the cause of diseases classified elsewhere; R03.0 Elevated blood-pressure reading, without diagnosis of hypertension; J02.9 Acute pharyngitis, unspecified; Z87.891 Personal history of nicotine dependence; Z88.8 Allergy status to other drugs, medicaments and biological substances
CPT/HCPCS: 71046; 99212; A9270-GY; G0463

== ENCOUNTER → 2018-11-25 18:21 | Emergency (ER) | payer BC ==
[~2018-11-25 18:21] MED LIST changes: +Amoxicillin/Clavulanate TAB* 875 MG PO ONE; +Ibuprofen TAB* 600 MG PO ONE; -Iohexol 300* (CONTRAST) 10 ML SDV IV ONE
--- NOTE | 2018-11-25 19:29 | ED ---
Throat Pain/Nasal Congestion - HPI Summary HPI Summary: Pt is a 23 y/o M presenting to the ED with a chief complaint of R ear pain. He reports he had an ear infection that he received abx ear drops for. He stopped using them a couple of days ago because it was not getting better, and the pain became worse. He reports congestion, head pressure, and R ear pain. - History of Current Complaint Chief Complaint: EDEarPain Time Seen by Provider: 11/25/18 18:53 Hx Obtained From: Patient Onset/Duration: Gradual Onset, Lasting Days, Still Present Severity: Moderate Associated Signs And Symptoms: Positive: Sinus Discomfort Cough: None - Allergies/Home Medications Allergies/Adverse Reactions: Allergies Allergy/AdvReac Type Severity Reaction Status Date / Time prednisone AdvReac See Comment Verified 11/25/18 18:45 PMH/Surg Hx/FS Hx/Imm Hx Previously Healthy: Yes Endocrine/Hematology History: Denies: Hx Anticoagulant Therapy, Hx Diabetes, Hx Thyroid Disease Cardiovascular History: Denies: Hx Hypertension Respiratory History: Reports: Hx Asthma, Other Respiratory Problems/Disorders - pneumonia 2017 Denies: Hx Chronic Obstructive Pulmonary Disease (COPD) GI History: Reports: Other GI Disorders Denies: Hx Ulcer History: Denies: Hx Kidney Stones Sensory History: Denies: Hx Legally Blind Opthamlomology History: Denies: Hx Legally Blind - Surgical History Surgery Procedure, Year, and Place: [place] teeth '16,. Tubes in ears as a child. mole removal on back 2017 - Immunization History Date of Tetanus Vaccine: 08/2017 Infectious Disease History: No Infectious Disease History: Denies: Hx Clostridium Difficile, Hx Hepatitis, Hx Human Immunodeficiency Virus (HIV), Hx of Known/Suspected MRSA, Hx Shingles, Hx Tuberculosis, Hx Known/ Suspected VRE, Hx Known/Suspected VRSA, History Other Infectious Disease, Traveled Outside the [place] in Last 30 Days - Family History Known Family History: Positive: Cardiac Disease, Hypertension, Other - [place], [place] Negative: Diabetes - Social History Alcohol Use: Occasionally Alcohol Amount: 3-5 Hx Substance Use: Yes Substance Use Type: Reports: Marijuana Substance Use Comment - Amount & Last Used: occassionally Hx Tobacco Use: Yes - not currently Smoking Status (MU): Former Smoker Type: Cigarettes Length of Time of Smoking/Using Tobacco: 4 years Review of Systems Positive: Ear Ache, Other - congestion Positive: Headache - light head pressure All Other Systems Reviewed And Are Negative: Yes Physical Exam - Summary Physical Exam Summary: Appearance: Well appearing, no pain distress Skin: warm, dry, reflects adequate perfusion Head/face: normal Eyes: EOMI, HOA ENT: R ear is external canal erythematous. The R TM is erythematous and dull. L ear is normal. Neck: supple, non-tender Respiratory: CTA, breath sounds present Cardiovascular: RRR, pulses symmetrical Abdomen: non-tender, soft Musculoskeletal: normal, strength/ROM intact Neuro: normal, sensory motor intact, A&Ox3 Triage Information Reviewed: Yes Vital Signs On Initial Exam: Initial Vitals Temp Pulse Resp BP Pulse Ox 98.4 F 87 17 140/87 99 11/25/18 18:22 11/25/18 18:22 11/25/18 18:22 11/25/18 18:22 11/25/18 18:22 Vital Signs Reviewed: Yes Diagnostics - Vital Signs Vital Signs Temp Pulse Resp BP Pulse Ox 11/25/18 18:22 98.4 F 87 17 140/87 99 - Laboratory Lab Statement: Any lab studies that have been ordered have been reviewed, and results considered in the medical decision making process. EENT Course/Dx - Course Course Of Treatment: Pt is a 23 y/o M presenting to the ED with a chief complaint of R ear pain. He reports he had an ear infection that he received abx ear drops for which he stopped using a couple of days ago. He reports congestion, head pressure, and R ear pain. On exam, the R external ear is erythematous, and the R TM is erythematous and dull. The pt will be d/c'ed with a dx of otitis media, abx, and instructions to follow up with his PCP in 2- 3 days. He is stable and agreeable with this plan. - Differential Diagnoses Differential Diagnoses: Otitis Externa, Otitis Media - Diagnoses Provider Diagnoses: Otitis media Discharge - Sign-Out/Discharge Documenting (check all that apply): Patient Departure Patient Received Moderate/Deep Sedation with Procedure: No - Discharge Plan Condition: Stable Disposition: HOME Prescriptions: Amoxicillin/Clavulanate TAB* [Augmentin TAB 875*] 875 mg PO BID #20 tab Referrals: Francisco Vázquez MD [Primary Care Provider] - Additional Instructions: Please take your prescribed medications as instructed. Follow up with your primary care provider in 2-3 days. Return to the ED with any new or worsening symptoms. - Billing Disposition and Condition Condition: STABLE Disposition: Home - Attestation Statements Document Initiated by Ramon: Yes Documenting Scribe: Eve Feliciano Provider For Whom Ramon is Documenting (Include Credential): Darin Montoya MD. Scribe Attestation: Eve Simon, aditied for Darin Montoya MD. on 11/25/18 at 1933. Scribe Documentation Reviewed: Yes Provider Attestation: The documentation as recorded by the Eve dillard accurately reflects the service I personally performed and the decisions made by , Darin Montoya MD. Status of Scribe Document: Viewed
[2018-11-25 19:40] VITALS: BP 134/78
== END | disposition home or self-care (01) ==
LOC: ED 18:21
DX: H66.91 Otitis media, unspecified, right ear (principal); Z88.8 Allergy status to other drugs, medicaments and biological substances; Z87.891 Personal history of nicotine dependence
CPT/HCPCS: 99282; A9270-GY

== ENCOUNTER 2018-12-09 14:35 | Emergency (ER) | payer BC ==
[2018-12-09 14:54] VITALS: BP 100/60
--- NOTE | 2018-12-09 15:03 | UC ---
Abdominal Pain Male HPI - HPI Summary HPI Summary: 23-year-old male presents with 4 days of watery diarrhea. He states that he is becoming a little nauseous and weak and limp like to be evaluated. He has had crampy abdominal pain diffusely. He had been on Augmentin and completed the course for an ear infection which is now much better. Following this the diarrhea started. He denies any blood in it or any history of Crohn's/colitis. - History of Current Complaint Chief Complaint: UCGI Stated Complaint: STOMACH PAIN, LIGHT HEADED Hx Obtained From: Patient Pain Intensity: 2 - Allergies/Home Medications Allergies/Adverse Reactions: Allergies Allergy/AdvReac Type Severity Reaction Status Date / Time prednisone AdvReac See Comment Verified 12/09/18 14:54 PMH/Surg Hx/FS Hx/Imm Hx Previously Healthy: Yes Other History Of: Negative For: Anticoagulant Therapy - Surgical History Surgical History: Yes Surgery Procedure, Year, and Place: [place] teeth '16,. Tubes in ears as a child. mole removal on back 2018 - Family History Known Family History: Positive: Cardiac Disease, Hypertension, Other - [place], [place] Negative: Diabetes - Social History Occupation: Employed Full-time Alcohol Use: Occasionally Alcohol Amount: 3-5 Substance Use Type: Marijuana Substance Use Comment - Amount & Last Used: occassionally Smoking Status (MU): Former Smoker Type: Cigarettes Length of Time of Smoking/Using Tobacco: 4 years - Immunization History Most Recent Tetanus Shot: 2018 Hx Tetanus, Diphtheria Vaccination: Yes - 2014 Vaccination Up to Date: Yes Review of Systems All Other Systems Reviewed And Are Negative: Yes Constitutional: Negative: Fever Skin: Positive: Negative ENT: Negative: Ear Ache Respiratory: Positive: Negative Cardiovascular: Positive: Negative Gastrointestinal: Positive: Abdominal Pain, Diarrhea. Negative: Vomiting, Nausea Physical Exam Triage Information Reviewed: Yes Appearance: Well-Appearing, No Pain Distress, Well-Nourished Vital Signs: Initial Vital Signs Temp 98.2 F 12/09/18 14:50 Pulse 74 12/09/18 14:50 Resp 16 12/09/18 14:50 BP 100/60 12/09/18 14:50 Pulse Ox 100 12/09/18 14:50 Eyes: Positive: Conjunctiva Clear ENT: Positive: Pharynx normal, Other - Mucous membranes moist Neck: Positive: Supple, Nontender Respiratory: Positive: Lungs clear Cardiovascular: Positive: RRR Abdomen Description: Positive: Nontender, Soft. Negative: [place] Tenderness Bowel Sounds: Positive: Present Musculoskeletal Exam: Normal Neurological Exam: Normal Psychological Exam: Normal Abd Pain Male Course/Dx - Course Course Of Treatment: Antibiotic associated diarrhea. Hydrated appearing. No weakness with standing. Treat with probiotic/bacteria containing yogurt, Imodium, Zofran/ Levsin. - Differential Dx/Clinical Impression Differential Diagnosis/HQI/PQRI: Appendicitis, Bowel Obstruction, Other - Gastroenteritis, Crohn's/ulcerative colitis Provider Diagnosis: Antibiotic-associated diarrhea Discharge - Sign-Out/Discharge Documenting (check all that apply): Patient Departure All imaging exams completed and their final reports reviewed: No Studies - Discharge Plan Condition: Improved Disposition: HOME Prescriptions: Hyoscyamine Sulfate [Oscimin] 0.125 mg PO Q4H PRN #20 tab PRN Reason: cramping Ondansetron ODT TAB* [Zofran 4 MG Odt TAB*] 4 mg PO Q8H PRN #10 tab.odt PRN Reason: Nausea Patient Education Materials: Acute Diarrhea (ED) Forms: *Work Release Referrals: Francisco Vázquez MD [Primary Care Provider] - Additional Instructions: Take a probiotic or eat ACTIVIA yogurt. Imodium to be taken for diarrhea. Follow box instructions. Stay well-hydrated, Gatorade G2 may help. Return with fever, weakness, worse, pain in the right lower abdomen, or other concerns. - Billing Disposition and Condition Condition: IMPROVED Disposition: Home
== END 2018-12-09 15:20 | disposition home or self-care (01) ==
LOC: UCEAST 14:35
DX: K52.1 Toxic gastroenteritis and colitis (principal); T36.95XA Adverse effect of unspecified systemic antibiotic, initial encounter; Y92.9 Unspecified place or not applicable; Z87.891 Personal history of nicotine dependence
CPT/HCPCS: 99212; G0463

== ENCOUNTER 2018-12-18 12:54 | Emergency (ER) | payer BC ==
[2018-12-18 13:26] VITALS: BP 127/68
--- NOTE | 2018-12-18 14:04 | UC ---
Skin Complaint HPI - HPI Summary HPI Summary: Pt presents with c/o splinter retained in left middle finger that pt obtained 2 weeks ago. Pt has been trying to take splinter out at home with no success. Pt states that he thinks that the skin surrounding the splinter is infected as it is mildly swelling, tender and erythematous. Pt also has c/o of rash to anterior chest that began 2 months ago. Pt reports that he was "very sick" ~ 2 - 3 weeks ago with fever, ear infection, productive cough. Pt denies that the rash is painful or itchy. - History of Current Complaint Chief Complaint: UCSkin Time Seen by Provider: 12/18/18 13:52 Stated Complaint: FB IN FINGER Hx Obtained From: Patient Onset/Duration: Sudden Onset - for FB, Gradual Onset - rash on anterior chest, Lasting Weeks - rash X 8 weeks., Still Present - RAsh and FB, Worse Since - onet for both rash and FB Skin Exposure Onset/Duration: Weeks Ago - 2 weeks ago for FB and 2 months ago for rash. Timing: Constant Onset Severity: Mild Current Severity: Moderate Pain Intensity: 3 Location: Discrete - third left finger, Other - chest rash Character: Pain - FB, Redness - FB, Raised - FB, Painful - FB Aggravating Factor(s): Touch Alleviating Factor(s): Nothing Associated Signs & Symptoms: Positive: Rash, Tenderness Related History: Foreign Body - left third finger - Allergy/Home Medications Allergies/Adverse Reactions: Allergies Allergy/AdvReac Type Severity Reaction Status Date / Time prednisone AdvReac See Comment Verified 12/18/18 13:23 Home Medications: Home Medications Fluticasone HFA 220 mcg(NF) [Flovent Hfa 220 Mcg(NF)] 2 puff INH DAILY 12/18/18 [History Confirmed 12/18/18] PMH/Surg Hx/FS Hx/Imm Hx Previously Healthy: Yes Other History Of: Negative For: Anticoagulant Therapy - Surgical History Surgical History: Yes Surgery Procedure, Year, and Place: [place] teeth '16,. Tubes in ears as a child. mole removal on back 2018 - Family History Known Family History: Positive: Cardiac Disease, Hypertension, Other - [place], [place] Negative: Diabetes - Social History Occupation: Employed Full-time Lives: With Family Alcohol Use: Occasionally Alcohol Amount: 3-5 Substance Use Type: Marijuana Substance Use Comment - Amount & Last Used: occassionally Smoking Status (MU): Former Smoker Type: Cigarettes Amount Used/How Often: ocassional Length of Time of Smoking/Using Tobacco: 4 years Household Exposure Type: Cigarettes - Immunization History Most Recent Tetanus Shot: 2018 Hx Tetanus, Diphtheria Vaccination: Yes - 2015 Vaccination Up to Date: Yes Review of Systems All Other Systems Reviewed And Are Negative: Yes Constitutional: Positive: Negative Skin: Positive: Rash - anterior rash, Other - FB in left third finger Eyes: Positive: Negative ENT: Positive: Negative Respiratory: Positive: Negative Cardiovascular: Positive: Negative Gastrointestinal: Positive: Negative Genitourinary: Positive: Negative Motor: Positive: Negative Neurovascular: Positive: Negative Musculoskeletal: Positive: Edema - left distal middle at FB site Neurological: Positive: Negative Psychological: Positive: Negative Is Patient Immunocompromised?: No Physical Exam Triage Information Reviewed: Yes Appearance: Well-Appearing Vital Signs: Initial Vital Signs Temp 98.7 F 12/18/18 13:19 Pulse 80 12/18/18 13:19 Resp 18 12/18/18 13:19 BP 127/68 12/18/18 13:19 Pulse Ox 98 12/18/18 13:19 Vital Signs Reviewed: Yes Eye Exam: Normal ENT: Positive: Hearing grossly normal Neck exam: Normal Neck: Positive: Supple Respiratory: Positive: No respiratory distress Musculoskeletal Exam: Normal Neurological Exam: Normal Psychological Exam: Normal Skin: Positive: Rashes - anterior chest, flat , circular, mild erythematous, no vessicles, no pruritus, no discharge, blanchable., Other - FB removed from left distal middle finger. Course/Dx - Differential Diagnoses - Skin Complaint Differential Diagnoses: Cellulitis - Diagnoses Provider Diagnosis: Viral exanthem, unspecified, Foreign body (FB) in soft tissue Discharge - Sign-Out/Discharge Documenting (check all that apply): Patient Departure All imaging exams completed and their final reports reviewed: No Studies - Discharge Plan Condition: Stable Disposition: HOME Patient Education Materials: Viral Exanthem (ED), Soft Tissue Foreign Body (ED) Referrals: Francisco Vázquez MD [Primary Care Provider] - As Soon As Possible Additional Instructions: Please follow up with your PCP as soon as possible with regard to your c/o of rash. - Billing Disposition and Condition Condition: STABLE Disposition: Home
== END 2018-12-18 14:15 | disposition home or self-care (01) ==
LOC: UCEAST 12:54
DX: M79.5 Residual foreign body in soft tissue (principal); B09 Unspecified viral infection characterized by skin and mucous membrane lesions; Z87.891 Personal history of nicotine dependence
CPT/HCPCS: 99211; G0463

== ENCOUNTER 2019-06-23 16:03 | Emergency (ER) | payer BC ==
[2019-06-23 16:23] VITALS: BP 113/74
--- NOTE | 2019-06-23 16:57 | UC ---
Throat Pain/Nasal Axel HPI - HPI Summary HPI Summary: 23-year-old male comes in with a chief complaint of right hand pain. Pains at the base of the right thumb. 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 FOCUS pain at the base of the right thumb. Overall it did start to improve however again while working carpentry he accidentally struck his right hand in the same location at the base of the thumb with a hammer. Pain is worse with any kind of movement or palpation. No complaint of any numbness or weakness. Pain goes into the right thumb it does not go into the fingers. Patient is had about a week to 10 days of upper respiratory tract infection symptoms.'s been having rhinorrhea cough chest congestion. Sputum has been yellow. Reports a fever yesterday and today. - History of Current Complaint Chief Complaint: UCUpperExtremity Stated Complaint: FEVER, CHILLS, HAND PAIN Time Seen by Provider: 06/23/19 16:43 Pain Intensity: 7 - Allergies/Home Medications Allergies/Adverse Reactions: Allergies Allergy/AdvReac Type Severity Reaction Status Date / Time prednisone AdvReac See Comment Verified 06/23/19 16:23 PMH/Surg Hx/FS Hx/Imm Hx Previously Healthy: Yes Other History Of: Negative For: Anticoagulant Therapy - Surgical History Surgical History: Yes Surgery Procedure, Year, and Place: [place] teeth '16,. Tubes in ears as a child. mole removal on back 2018 - Family History Known Family History: Positive: Cardiac Disease, Hypertension, Other - [place], [place] Negative: Diabetes - Social History Alcohol Use: None Alcohol Amount: 5 months sober Substance Use Type: Marijuana Substance Use Comment - Amount & Last Used: monthly Smoking Status (MU): Former Smoker Type: Cigarettes Amount Used/How Often: ocassional Length of Time of Smoking/Using Tobacco: 4 years Household Exposure Type: Cigarettes - Immunization History Most Recent Tetanus Shot: 2018 Hx Tetanus, Diphtheria Vaccination: Yes - 2014 Vaccination Up to Date: Yes Review of Systems All Other Systems Reviewed And Are Negative: Yes Constitutional: Positive: Negative Skin: Positive: Negative Eyes: Positive: Negative ENT: Positive: Nasal Discharge, Sinus Congestion Respiratory: Positive: Cough, Other - SEE HPI Cardiovascular: Positive: Negative Gastrointestinal: Positive: Negative Motor: Positive: Negative Neurovascular: Positive: Negative Musculoskeletal: Positive: Other: - SEE HPI Neurological: Positive: Negative Psychological: Positive: Negative Is Patient Immunocompromised?: No Physical Exam Triage Information Reviewed: Yes Appearance: Well-Appearing, No Pain Distress, Well-Nourished Vital Signs: Initial Vital Signs Temp 97.8 F 06/23/19 16:17 Pulse 83 06/23/19 16:17 Resp 16 06/23/19 16:17 BP 113/74 06/23/19 16:17 Pulse Ox 98 06/23/19 16:17 Vital Signs Reviewed: Yes Eye Exam: Normal Eyes: Positive: Conjunctiva Clear ENT: Positive: Pharyngeal erythema, Nasal congestion, Nasal drainage, TMs normal Neck: Positive: Supple Respiratory: Positive: Lungs clear, Normal breath sounds, No respiratory distress Cardiovascular: Positive: RRR Musculoskeletal: Positive: Other: - On the right hand the patient is tender to palpation in the palm at the base of the right first metacarpal. He is nontender in the snuffbox. Sensation is normal capillary refill is normal distally. Some decreased range of motion with the right thumb secondary to pain.. Fingers and the wrist all have full range of motion full-strength. Neurological: Positive: Alert Psychological: Positive: Age Appropriate Behavior Skin Exam: Normal Throat Pain/Nasal Course/Dx - Course Course Of Treatment: [facility] Shift Lead: Tad Garcia ([id number]) Perpetual Inventory Clerk: JEWELL (JEWELL) Report Date: 06/23/2019 17:32:00 Report Status: Final Start of Report Content Patient Name: LILI DONALDSON Medical Record#: [id number] Ordering Physician: Devin Saenz MD Acct.#: [id number] : 09/1995 Age: 23 Sex: M Location: [facility] Exam Date: 06/23/19 1651 ADM Status: REG ER Order Information: HAND - RIGHT MINIMUM 3 VIEWS Accession Number: [id number] CPT: 76555 INDICATION: Pain at the base of the right thumb since an injury 2 months earlier COMPARISON: None. TECHNIQUE: 4 views of the right hand were obtained. FINDINGS: The adequately corticated bones are in normal alignment. No significant focal osseous abnormality or fracture is seen. Joint spaces appear maintained. IMPRESSION: Normal right hand radiograph. If the patient's symptoms persist, follow-up imaging is recommended. < Electronically signed by Tad Garcia MD in OV> 06/23/191727 Dictated By: Tad Gacria MD Dictated Date/Time: 06/23/191726 Transcribed Date/Time: 1726 Copy to: CC:Francisco Vázquez MD; Devin Saenz MD Imaging - [facility] Imaging - [facility] [address] [place] [address] ph ([phone]) ph ([phone]) ph ([phone]) End of Report Content I discussed the x-rays with the patient. No fracture seen. No snuffbox tenderness. Injury and pain is at the base of the thumb. Placed in a thumb spica splint by nursing patient neurovascular intact after placement of thumb spica splint. Plan is ice anti-inflammatories immobilization as needed and follow-up with orthopedics if not completely improved. We discussed viral versus bacterial infections and the role of antibiotics at this time with his symptoms being essentially 10 days in duration and with yellow sputum and fevers we'll treat with Anthony azithromycin for bronchitis. - Differential Dx/Diagnosis Provider Diagnosis: Bronchitis, Contusion of right hand Discharge ED - Sign-Out/Discharge Documenting (check all that apply): Patient Departure All imaging exams completed and their final reports reviewed: Yes - Discharge Plan Condition: Stable Disposition: HOME Prescriptions: Azithromyxin SHADY (NF) [Z-Shady (Zithromax) 250 mg tabs #6] 2 tab PO .TODAY, THEN 1 DAILY #6 tab Patient Education Materials: Acute Bronchitis (ED), Hand Sprain (ED) Referrals: Francisco Vázquez MD [Primary Care Provider] - Ramiro Lombardo MD [Medical Doctor] - Additional Instructions: FOLLOW UP WITH YOUR PRIMARY CARE DOCTOR IF YOUR BRONCHITIS IS NOT COMPLETELY IMPROVED. FOLLOW UP WITH ORTHOPEDICS IF YOUR HAND INJURY DOES NOT IMPROVE. GET REEVALUATED SOONER IF NOT IMPROVED OR WORSE OR ANY QUESTIONS OR CONCERNS. - Billing Disposition and Condition Condition: STABLE Disposition: Home
== END 2019-06-23 17:45 | disposition home or self-care (01) ==
LOC: UCEAST 16:03
DX: S60.011A Contusion of right thumb without damage to nail, initial encounter (principal); J40 Bronchitis, not specified as acute or chronic; J34.89 Other specified disorders of nose and nasal sinuses; Z87.891 Personal history of nicotine dependence; W18.39XA Other fall on same level, initial encounter; Y92.9 Unspecified place or not applicable; Y99.0 Civilian activity done for income or pay; Z88.8 Allergy status to other drugs, medicaments and biological substances
CPT/HCPCS: 99212; G0463

== ENCOUNTER 2019-10-30 19:25 | Emergency (ER) | payer BC ==
[2019-10-30 19:42] VITALS: BP 134/81
[2019-11-03 18:24] LABS: Chlamydia trachomatis NAA Negative (Negative); Neisseria gonorrhoeae (GC) NAA Negative (Negative)
== END 2019-10-30 20:16 | disposition home or self-care (01) ==
LOC: UCEAST 19:25